=== PATIENT | female | born 1935 | race Caucasian/White ===

== ENCOUNTER 2016-07-24 18:38 | Emergency (ER) | payer BC ==
[~2016-07-24 18:38] MED LIST: ACET-1311 PO; ARC5 PO; ASCO10003 PO; ASPEC81 PO; CHOL1TAB4 PO; CIPR1TAB10 PO; CYAN100048 PO; DFL100 PO; DLCSR120 PO; ESCI1TAB6 PO; HYDR-5688 PO; INSDGIPEN SC; INSUINJ14 SC; METR-163 PO; MULT-513 PO; PANC1CAP17 PO; SODI5SOL4 OPB; TPRSR50 PO; TRAM-10 PO; TRAV0.00 OPB; ZYP25 PO
[2016-07-24] MEDS ORDERED: IBUPROFEN 600 MG TAB PO STA (18:49)
--- NOTE | 2016-07-24 18:56 | EMERGENCY ROOM VISIT NOTE ---
History Report prepared by Gisella: Reva Cobos Under the Supervision of: Dr. Donald Harris M.D. First contact with patient: 18:40 Stated Complaint: ILLNESS, INCREASED AMS, FEVER History of Present Illness The patient is an 80 year old female who presents to the Emergency Room with worsening AMS. She comes by EMS from the [facility]. Nursing staff reports that the patient is always altered, but has been increasingly so today. She has also had a fever for 2 days. The staff has been giving her Tylenol, but the time of her last dose is unknown. The patient also had some vomiting. She complains of lower abdominal pain. The history is limited due to the patient's AMS. 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 (8) Pancreat Cyst/Pseudocyst (9) Percutaneous Translum Coron Angioplasty Status (10) Pneumonia (11) Pure Hypercholesterolem Family History Omitted secondary to age Social History Smoking Status: Unknown if Ever Smoked Alcohol Use: none Drug Use: none Marital Status: Housing Status: assisted living Occupation Status: retired Current/Historical Medications Scheduled Acetaminophen (Tylenol), 500 MG PO QID Cholecalciferol (D 5000), 5,000 UNITS PO QAM Cyanocobalamin (Vitamin B-12), 3,000 MCG PO QAM Diltiazem Hcl Ext Rel (Tiazac), 120 MG PO QAM Donepezil HCl (Donepezil HCl), 5 MG PO HS Escitalopram (Lexapro), 10 MG PO QAM Escitalopram Oxalate (Lexapro), 5 MG PO QAM Insulin Glargine (Lantus Solostar), 12 UNITS SC AMPM Metoprolol Succ (Toprol Xl) (Toprol-Xl), 50 MG PO QAM Multiple Vitamins W/ Minerals (Therems M), 1 TAB PO QAM Multiple Vitamins W/ Minerals (Preservision Areds 2), 1 CAP PO QAM Nutritional Supplements (Glucerna), 60 ML PO QID Olanzapine (Olanzapine), 1 TAB PO HS Olanzapine (Zyprexa), 2.5 MG PO HS Pancrelipase (Lipase-Protease- (Zenpep 58814 Unit), 20,000 UNITS PO TIDM Sulfa/Trimethoprim (Bactrim Ds 800MG/160MG), 1 TAB PO BID Travoprost (Travatan Z), 1 DROPS OPB HS Scheduled PRN Acetaminophen (Tylenol), 650 MG PO Q4 PRN for MILD PAIN/TEMP >100F Allergies Coded Allergies: Honey Bee (Verified Allergy, Severe, HIVES, 07/24/16) Latex (Verified Allergy, Mild, RASH, 07/24/16) Adhesives (Verified Allergy, Unknown, BANDAIDS, 07/24/16) Penicillins (Verified Adverse Reaction, Mild, NAUSEA, 07/24/16) Physical Exam Vital Signs Date Time Temp Pulse Resp B/P (MAP) Pulse Ox O2 Delivery O2 Flow Rate FiO2 07/24/16 20:31 63 07/24/16 19:40 38.5 07/24/16 18:59 93 Room Air 07/24/16 18:54 37.2 74 18 159/97 93 Room Air Physical Exam GENERAL: Patient awake, alert, confused, disoriented. Patient follows commands. Patient does not appear toxic. Patient is adequately hydrated and well-nourished. SKIN: No erythema, pallor, cyanosis or rash. Warm to touch. HEENT: Normal head, pupils equal, reactive to light and accommodation. Oral cavity and posterior pharynx appear normal. Neck: Without adenopathy, no neck vein distention. LUNGS: Clear to auscultation. No wheezes, no rales, no rhonchi. HEART: No murmurs. No gallops. No rubs ABDOMEN: No masses, no rebound, no hepatomegaly or splenomegaly. EXTREMITIES: No signs of trauma. No pedal or pretibial edema. No calf or thigh tenderness. NEUROLOGIC: Cranial nerves II-XII within normal limits. No gross motor sensory function deficits. Medical Decision & Procedures ER Provider Diagnostic Interpretation: X ray results are stated below per my interpretation and the radiologist's interpretation. CHEST ONE VIEW PORTABLE HISTORY: fever COMPARISON: Chest 11/10/2015. FINDINGS: There are low lung volumes. The heart is top normal in size. No pleural effusions. No pneumothorax. No focal lung consolidations to suggest pneumonia. No evidence for pulmonary edema. IMPRESSION: No acute process. Electronically signed by: Wayne Rowan M.D. 07/24/2016 8:17 PM Dictated Date/Time: 07/24/2016 8:16 PM Laboratory Results 07/24/16 19:10 Red Blood Count 4.08, Mean Corpuscular Volume 89.5, Mean Corpuscular Hemoglobin 30.6, Mean Corpuscular Hemoglobin Concent 34.2, Mean Platelet Volume 9.2, Neutrophils (%) (Auto) 84.1, Lymphocytes (%) (Auto) 8.6, Monocytes (%) (Auto) 6.6, Eosinophils (%) (Auto) 0.2, Basophils (%) (Auto) 0.2, Neutrophils # (Auto) 9.02, Lymphocytes # (Auto) 0.92, Monocytes # (Auto) 0.71, Eosinophils # (Auto) 0.02, Basophils # (Auto) 0.02 07/24/16 19:10 Test 07/24/16 19:10 07/24/16 19:23 White Blood Count 10.72 K/uL (4.8-10.8) Red Blood Count 4.08 M/uL (4.2-5.4) Hemoglobin 12.5 g/dL (12.0-16.0) Hematocrit 36.5 % (37-47) Mean Corpuscular Volume 89.5 fL (80-100) Mean Corpuscular Hemoglobin 30.6 pg (25-34) Mean Corpuscular Hemoglobin Concent 34.2 g/dl (32-36) Platelet Count 227 K/uL (130-400) Mean Platelet Volume 9.2 fL (7.4-10.4) Neutrophils (%) (Auto) 84.1 % Lymphocytes (%) (Auto) 8.6 % Monocytes (%) (Auto) 6.6 % Eosinophils (%) (Auto) 0.2 % Basophils (%) (Auto) 0.2 % Neutrophils # (Auto) 9.02 K/uL (1.4-6.5) Lymphocytes # (Auto) 0.92 K/uL (1.2-3.4) Monocytes # (Auto) 0.71 K/uL (0.11-0.59) Eosinophils # (Auto) 0.02 K/uL (0-0.5) Basophils # (Auto) 0.02 K/uL (0-0.2) RDW Standard Deviation 46.0 fL (36.4-46.3) RDW Coefficient of Variation 13.9 % (11.5-14.5) Immature Granulocyte % (Auto) 0.3 % Immature Granulocyte # (Auto) 0.03 K/uL (0.00-0.02) Anion Gap 8.0 mmol/L (3-11) Estimated GFR () 37.2 Estimated GFR (Non- 32.1 BUN/Creatinine Ratio 15.8 (10-20) Lactic Acid Level 1.9 mmol/L (0.4-2.0) Calcium Level 8.7 mg/dl (8.5-10.1) Total Bilirubin 0.4 mg/dl (0.2-1) Aspartate Amino Transf (AST/SGOT) 17 U/L (15-37) Alanine Aminotransferase (ALT/SGPT) 23 U/L (12-78) Alkaline Phosphatase 72 U/L (45-117) Troponin I < 0.015 ng/ml (0-0.045) Total Protein 6.9 gm/dl (6.4-8.2) Albumin 3.1 gm/dl (3.4-5.0) Globulin 3.8 gm/dl (2.5-4.0) Albumin/Globulin Ratio 0.8 (0.9-2) Urine Color YELLOW Urine Appearance CLOUDY (CLEAR) Urine pH 7.0 (4.5-7.5) Urine Specific [place] 1.020 (1.000-1.030) Urine Protein 2+ (NEG) Urine Glucose (UA) 2+ (NEG) Urine Ketones NEG (NEG) Urine Occult Blood 3+ (NEG) Urine Nitrite NEG (NEG) Urine Bilirubin NEG (NEG) Urine Urobilinogen NEG (NEG) Urine Leukocyte Esterase LARGE (NEG) Urine WBC (Auto) >30 /hpf (0-5) Urine RBC (Auto) >30 /hpf (0-4) Urine Hyaline Casts (Auto) 1-5 /lpf (0-5) Urine Epithelial Cells (Auto) 0-5 /lpf (0-5) Urine Bacteria (Auto) NEG (NEG) Urine Yeast (Auto) PRESENT (NONE PRSENT) Laboratory results as stated above per my review. ECG Indication: altered mental status Rate (beats per minute): 62 Rhythm: normal sinus (with sinus arrythmia) Findings: no acute ischemic change, other (normal axis) ED Course 1843: Past medical records reviewed. The patient was evaluated in room B7. A complete history and physical examination was performed. 1848: Ibuprofen 600 mg PO. Medical Decision Nurses notes reviewed. Medical history sheet reviewed. Differential diagnosis includes but is not limited to: UTI, pneumonia, sepsis, CVA, TIA. Medication Reconciliation: I attest that I have personally reviewed the patient' s current medication list. Blood Pressure Screening: Patient was found to have an elevated blood pressure and was referred to their primary doctor for recheck and further treatment. The patient has a history of altered mentation but apparently has been worse over the past day. The patient also was found to have a low-grade fever. Chest x-ray does not reveal an infiltrate. Her white count is not elevated nor is her lactic acid. The patient does have an infected urine. I do not think patient is septic. She was started on Bactrim today. She will continue that medication at the assisted living facility. Impression Primary Impression: Urinary tract infection Scribe Attestation The scribe's documentation has been prepared under my direction and personally reviewed by me in its entirety. I confirm that the note above accurately reflects all work, treatment, procedures, and medical decision making performed by me. Departure Information Dispostion Home / Self-Care Prescriptions Sulfa/Trimethoprim (Bactrim Ds 800MG/160MG) Tab 1 TAB PO BID, #19 TAB Prov: Donald Harris M.D. 07/24/16 Referrals Morales Ferguson M.D. (PCP) Additional Instructions One Bactrim twice a day for 10 days. Continue all of your current medications as prescribed. Urinalysis should be repeated within 10-14 days.
[2016-07-24 18:59] VITALS: O2SAT 93
[2016-07-24 19:34] LABS: BASO % 0.2 %; BASO ABS # 0.02 K/uL (0-0.2); COMPLETE YES; EOS % 0.2 %; HEMATOCRIT 36.5 % (37-47); IG% 0.3 %; LYMPH % 8.6 %; LYMPH ABS # 0.92 K/uL (1.2-3.4); MEAN CELL VOLUME 89.5 fL (80-100); MEAN CORPUSCULAR HEMOGLOBIN 30.6 pg (25-34); MEAN CORPUSCULAR HGB CONC 34.2 g/dl (32-36); MEAN PLATELET VOLUME 9.2 fL (7.4-10.4); MONO % 6.6 %; NEUT % 84.1 %; PLATELET COUNT 227 K/uL (130-400); RED BLOOD COUNT 4.08 M/uL (4.2-5.4); WHITE BLOOD COUNT 10.72 K/uL (4.8-10.8)
[2016-07-24] MEDS ORDERED: ACET-1256 PO (19:34)
[2016-07-24] MEDS ORDERED: INSDGIPEN SC (19:34)
[2016-07-24] MEDS ORDERED: OLAN1TAB7 PO (19:34)
[2016-07-24] MEDS ORDERED: MULT60CA PO (19:34)
[2016-07-24] MEDS ORDERED: CHOLCAP10 PO (19:34)
[2016-07-24] MEDS ORDERED: MULTTAB63 PO (19:34)
[2016-07-24] MEDS ORDERED: DILT120C68 PO (19:34)
[2016-07-24] MEDS ORDERED: NUTR-468 PO (19:34)
[2016-07-24] MEDS ORDERED: METO50TA7 PO (19:34)
[2016-07-24] MEDS ORDERED: ESCI10TA17 PO (19:34)
[2016-07-24 19:40] VITALS: TEMP 38.5
[2016-07-24 19:47] LABS: ALT/SGPT 23 U/L (12-78); AST/SGOT 17 U/L (15-37); BLOOD UREA NITROGEN 24 mg/dl (7-18); BUN/CREATININE RATIO 15.8 (10-20); CALCIUM 8.7 mg/dl (8.5-10.1); CARBON DIOXIDE 28 mmol/L (21-32); CHLORIDE 96 mmol/L (98-107); GLUCOSE 231 mg/dl (70-99); POTASSIUM 4.5 mmol/L (3.5-5.1); SODIUM 132 mmol/L (136-145)
[2016-07-24 19:52] LABS: ALB/GLOB RATIO 0.8 (0.9-2); ALKALINE PHOSPHATASE 72 U/L (45-117)
[2016-07-24 19:59] LABS: URINE APPEARANCE CLOUDY (CLEAR); URINE BILIRUBIN NEG (NEG); URINE COLOR YELLOW; URINE EPITHELIAL CELL AUTO 0-5 /lpf (0-5); URINE NITRITE NEG (NEG); UROBILINOGEN NEG (NEG); ZZURINE CULT IF INDIC CATH YES
[2016-07-24 20:15] LABS: MANUAL MICROSCOPIC REQUIRED? NO; REVIEW REQ? YES
--- NOTE | 2016-07-24 20:18 | DIAGNOSTIC IMAGING REPORT ---
CHEST ONE VIEW PORTABLE HISTORY: fever COMPARISON: Chest 11/10/2015. FINDINGS: There are low lung volumes. The heart is top normal in size. No pleural effusions. No pneumothorax. No focal lung consolidations to suggest pneumonia. No evidence for pulmonary edema. IMPRESSION: No acute process. Electronically signed by: Wayne Rowan M.D. 07/24/2016 8:17 PM Dictated Date/Time: 07/24/2016 8:16 PM
[2016-07-24] MEDS ORDERED: SULFAMETHOXAZOLE/TRIMETHOPRIM DS 800/160MG TAB PO STA (20:45)
[2016-07-24] MEDS ORDERED: SULF800T23 PO (20:49)
[2016-07-24 21:39] VITALS: BP 175/70; PULSE 67; O2SAT 94
[2016-07-27] MEDS ORDERED: ASPEC81 PO (11:48)
[2016-07-27] MEDS ORDERED: CPR500 PO (11:48)
[2016-09-01] MEDS ORDERED: ASPI-232 PO (11:55)
[2016-09-01] MEDS ORDERED: OXYC-57 PO (13:39)
[2016-09-01] MEDS ORDERED: PHEN-939 PO (13:39)
[2016-09-01] MEDS ORDERED: CIPR-255 PO (13:39)
== END 2016-07-24 21:40 | disposition home or self-care (01) ==
LOC: EDBD 18:38 → C.EDB 18:39
DX: N39.0 Urinary tract infection, site not specified (principal); R50.9 Fever, unspecified; R41.82 Altered mental status, unspecified; E11.9 Type 2 diabetes mellitus without complications; Z79.899 Other long term (current) drug therapy; Z79.4 Long term (current) use of insulin

== ENCOUNTER 2016-07-24 22:57 | Inpatient (IN) | payer BC, OTHER ==
[~2016-07-24] VITALS: Ht 157.5 cm; Wt 53.4 kg
[~2016-07-24 22:57] MED LIST changes: +ACET-1256 PO; +CHOLCAP10 PO; +DILT120C68 PO; +ESCI10TA17 PO; +METO50TA7 PO; +MULT60CA PO; +MULTTAB63 PO; +NUTR-468 PO; +OLAN1TAB7 PO; +SULF800T23 PO
[2016-07-24] MEDS ORDERED: ACETAMINOPHEN 650 MG SUPP PR ONE (23:00)
[2016-07-24] MEDS ORDERED: SODIUM CHLORIDE 0.9% 1000ML 1,000 ML IV STA ×2 (23:02)
[2016-07-24] MEDS ORDERED: AZTREONAM IV 2,000 MG in DEXTROSE 5% 100ML 100 ML IV STA (23:05)
[2016-07-24] MEDS ORDERED: DAPTOmycin IV 500 MG in SODIUM CHLORIDE 0.9% 50ML 50 ML IV STA (23:05)
[2016-07-24 23:28] LABS: BASO % 0.2 %; BASO ABS # 0.03 K/uL (0-0.2); COMPLETE YES; HEMATOCRIT 39.4 % (37-47); IG% 0.2 %; LYMPH % 7.3 %; LYMPH ABS # 0.89 K/uL (1.2-3.4); MEAN CELL VOLUME 88.7 fL (80-100); MEAN CORPUSCULAR HEMOGLOBIN 29.5 pg (25-34); MEAN CORPUSCULAR HGB CONC 33.2 g/dl (32-36); MEAN PLATELET VOLUME 9.2 fL (7.4-10.4); MONO % 11.2 %; NEUT % 81.1 %; PLATELET COUNT 225 K/uL (130-400); RED BLOOD COUNT 4.44 M/uL (4.2-5.4); WHITE BLOOD COUNT 12.17 K/uL (4.8-10.8)
--- NOTE | 2016-07-25 00:07 | EMERGENCY ROOM VISIT NOTE ---
History Report prepared by Gisella: Anali Herrera Under the Supervision of: Dr. Naga Mcknight M.D. First contact with patient: 23:00 Stated Complaint: FEVER History of Present Illness The patient is a 80 year old female who presents to the Emergency Room with complaints of a constant fever beginning today. Per nursing staff the patient is always has an altered mental status. She was seen here earlier today for lower abdominal pain and has UTI currently. She was discharged home after her visit and [facility] because of her fever. Per nursing staff the penitentiary noted that she has been more confused than usual over the last 2 days. The patient complains of abdominal pain. HPI limited secondary to altered mental status. Source of History: patient, nursing staff History Limited By: AMS Onset: tonight Position: other (global) Symptom Intensity: 102 Quality: other (fever) Timing: constant Review of Systems See HPI for pertinent positives and negatives. ROS limited secondary to AMS. 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 (8) Pancreat Cyst/Pseudocyst (9) Percutaneous Translum Coron Angioplasty Status (10) Pneumonia (11) Pure Hypercholesterolem Family History Omitted secondary to age Social History Smoking Status: Unknown if Ever Smoked Alcohol Use: none Drug Use: none Marital Status: Housing Status: assisted living Occupation Status: retired Current/Historical Medications Scheduled Acetaminophen (Tylenol), 500 MG PO QID Cholecalciferol (D 5000), 5,000 UNITS PO QAM Cyanocobalamin (Vitamin B-12), 3,000 MCG PO QAM Diltiazem Hcl Ext Rel (Tiazac), 120 MG PO QAM Donepezil HCl (Donepezil HCl), 5 MG PO HS Escitalopram (Lexapro), 10 MG PO QAM Escitalopram Oxalate (Lexapro), 5 MG PO QAM Insulin Glargine (Lantus Solostar), 12 UNITS SC AMPM Metoprolol Succ (Toprol Xl) (Toprol-Xl), 50 MG PO QAM Multiple Vitamins W/ Minerals (Therems M), 1 TAB PO QAM Multiple Vitamins W/ Minerals (Preservision Areds 2), 1 CAP PO QAM Nutritional Supplements (Glucerna), 60 ML PO QID Olanzapine (Olanzapine), 1 TAB PO HS Olanzapine (Zyprexa), 2.5 MG PO HS Pancrelipase (Lipase-Protease- (Zenpep 38139 Unit), 20,000 UNITS PO TIDM Sulfa/Trimethoprim (Bactrim Ds 800MG/160MG), 1 TAB PO BID Travoprost (Travatan Z), 1 DROPS OPB HS Scheduled PRN Acetaminophen (Tylenol), 650 MG PO Q4 PRN for MILD PAIN/TEMP >100F Allergies Coded Allergies: Honey Bee (Verified Allergy, Severe, HIVES, 07/24/16) Latex (Verified Allergy, Mild, RASH, 07/24/16) Adhesives (Verified Allergy, Unknown, BANDAIDS, 07/24/16) Penicillins (Verified Adverse Reaction, Mild, NAUSEA, 07/24/16) Physical Exam Vital Signs Date Time Temp Pulse Resp B/P (MAP) Pulse Ox O2 Delivery O2 Flow Rate FiO2 07/25/16 00:15 38.7 72 18 150/78 93 Room Air 07/24/16 23:17 73 07/24/16 23:13 92 Room Air 07/24/16 23:03 39.2 79 18 180/101 93 Room Air Physical Exam GENERAL: Awake, tired appearing, altered sensorium HENT: Normocephalic, atraumatic. Oropharynx unremarkable. EYES: Normal conjunctiva. Sclera non-icteric. NECK: Supple. No nuchal rigidity. FROM. No JVD. RESPIRATORY: Clear to auscultation. CARDIAC: Regular rate, normal rhythm. Extremities warm and well perfused. Pulses equal. ABDOMEN: Soft, non-distended. Mild left sided abdominal tenderness. No rebound or guarding. No masses. RECTAL: Deferred. MUSCULOSKELETAL: Chest examination reveals no tenderness. LOWER EXTREMITIES: Calves are equal size bilaterally and non-tender. No edema. No discoloration. NEURO: Normal sensorium. No sensory or motor deficits noted. SKIN: No rash or jaundice noted. Medical Decision & Procedures ER Provider Diagnostic Interpretation: CT scan of the abdomen and pelvis is pending radiology read. There is concerns for a left sided kidney stone and hydronephrosis with perinephric stranding on my interpretation. Laboratory Results 07/24/16 23:18 Red Blood Count 4.44, Mean Corpuscular Volume 88.7, Mean Corpuscular Hemoglobin 29.5, Mean Corpuscular Hemoglobin Concent 33.2, Mean Platelet Volume 9.2, Neutrophils (%) (Auto) 81.1, Lymphocytes (%) (Auto) 7.3, Monocytes (%) (Auto) 11.2, Eosinophils (%) (Auto) 0.0, Basophils (%) (Auto) 0.2, Neutrophils # (Auto ) 9.86, Lymphocytes # (Auto) 0.89, Monocytes # (Auto) 1.36, Eosinophils # (Auto ) 0.00, Basophils # (Auto) 0.03 Test 07/24/16 23:18 White Blood Count 12.17 K/uL (4.8-10.8) Red Blood Count 4.44 M/uL (4.2-5.4) Hemoglobin 13.1 g/dL (12.0-16.0) Hematocrit 39.4 % (37-47) Mean Corpuscular Volume 88.7 fL (80-100) Mean Corpuscular Hemoglobin 29.5 pg (25-34) Mean Corpuscular Hemoglobin Concent 33.2 g/dl (32-36) Platelet Count 225 K/uL (130-400) Mean Platelet Volume 9.2 fL (7.4-10.4) Neutrophils (%) (Auto) 81.1 % Lymphocytes (%) (Auto) 7.3 % Monocytes (%) (Auto) 11.2 % Eosinophils (%) (Auto) 0.0 % Basophils (%) (Auto) 0.2 % Neutrophils # (Auto) 9.86 K/uL (1.4-6.5) Lymphocytes # (Auto) 0.89 K/uL (1.2-3.4) Monocytes # (Auto) 1.36 K/uL (0.11-0.59) Eosinophils # (Auto) 0.00 K/uL (0-0.5) Basophils # (Auto) 0.03 K/uL (0-0.2) RDW Standard Deviation 45.5 fL (36.4-46.3) RDW Coefficient of Variation 13.8 % (11.5-14.5) Immature Granulocyte % (Auto) 0.2 % Immature Granulocyte # (Auto) 0.03 K/uL (0.00-0.02) Bedside Lactic Acid Venous 1.61 mmol/L (0.90-1.70) Laboratory results reviewed by me Medications Administered Medications (Trade) Dose Ordered Sig/Rae Route Start Time Stop Time Status Last Admin Dose Admin Acetaminophen (Tylenol Supp) 650 mg STK-MED ONCE [place] 07/24/16 23:00 07/24/16 23:01 DC 07/24/16 23:00 650 MG Sodium Chloride 1,000 ml @ 125 mls/hr Q8H STAT IV 07/24/16 23:02 07/25/16 07:01 07/24/16 23:30 125 MLS/HR Sodium Chloride 1,000 ml @ 999 mls/hr Q1H1M STAT IV 07/24/16 23:02 07/25/16 00:02 DC 07/24/16 23:02 999 MLS/HR Daptomycin 500 mg/ Sodium Chloride 60 ml @ 100 mls/hr NOW STAT IV 07/24/16 23:05 07/24/16 23:40 DC 07/24/16 23:30 100 MLS/HR Aztreonam 2000 mg/ Dextrose 110 ml @ 100 mls/hr NOW STAT IV 07/24/16 23:05 07/25/16 00:10 DC 07/25/16 00:00 100 MLS/HR ED Course 2300: The patient was evaluated in room B7. A complete history and physical exam was performed. 2300: Tylenol Susp 650mg [place]. 2302: Sodium Chloride 1000 ml @ 999 mls/hr IV, Sodium Chloride 1000 ml @ 125 mls /hr IV. 2305: Aztreonam 2000mg/Dextrose 110ml @ 100mls/hr IV, Daptomycin 500mg/Sodium Chloride 60ml @ 100mls/hr IV. 0005: consultation with internal medicine placed. 0010: Discussed the case with Dr. Fiona King of the hospitalist service. The patient will be evaluated for further treatment. 0025: Discussed my interpretation of the CT with Dr. Elkin Leo. Official read still pending. Internal medicine will be provided with the CT results when they are faxed to the principal secretary. Medical Decision Prior records/ancillary studies reviewed and summarized above. Nursing notes reviewed and agree them. Additional history obtained from nursing. The patient's history was concerning for altered mental status. Differential diagnosis: Etiologies such as sepsis, infection, hypoglycemia, electrolyte abnormalities, cardiac sources, intracerebral event, toxicologic, neurologic, as well as others were entertained. Physical examination: As above. ER treatment provided: IV Lock Tylenol suppository Normal saline hydration 1 L then 125 an hour IV aztreonam IV daptomycin Additional normal saline 500 mL bolus to complete a 30 mL/kg. Diagnostics interpretation by me: The labs revealed an increased leukocytosis of 12,000. Serum lactate was minimally elevated but slightly less than prior. Chemistries were not repeated. Please see other visit. Imaging studies: CT scan as above. Possible left pyelonephritis and proximal ureteral stone. Consultation: A consultation was placed with the hospitalist. The case was discussed and diagnostics were reviewed. The patient was evaluated in the ER for further treatment. The chart was completed utilizing [employer] Speech voice recognition software. Grammatical errors, random word insertions, pronoun errors, and incomplete sentences are an occasional consequence of this system due to software limitations, ambient noise, and hardware issues. Any formal questions or concerns about the content, text, or information contained within the body of this dictation should be directly addressed to the physician for clarification. Impression Primary Impression: Sepsis Additional Impressions: UTI (urinary tract infection) Left sided abdominal pain Confusion Scribe Attestation The scribe's documentation has been prepared under my direction and personally reviewed by me in its entirety. I confirm that the note above accurately reflects all work, treatment, procedures, and medical decision making performed by me. Departure Information Dispostion Being Evaluated By Hospitalist Referrals Morales Ferguson M.D. (PCP) Problem Qualifiers
[2016-07-25] MEDS ORDERED: SODIUM CHLORIDE 0.9% 500ML 500 ML IV STA (00:43)
[2016-07-25] MEDS ORDERED: POLYETHYLENE (MIRALAX) 17 GM PACK PO PRN (02:15)
[2016-07-25] MEDS ORDERED: ACETAMINOPHEN 325 MG TAB PO PRN (02:15)
[2016-07-25] MEDS ORDERED: ALUMINUM/MAGNESIUM/SIMETH (MAALOX MAX) 30 ML UDC PO PRN (02:15)
[2016-07-25] MEDS ORDERED: MAGNESIUM HYDROXIDE SUSP 30 ML UDC PO PRN (02:15)
--- NOTE | 2016-07-25 02:27 | History and Physical ---
History & Physical Date & Time of Service: Jul 25, 2016 at 02:27 Chief Complaint: FEVER Primary Care Physician: Morales Ferguson M.D. History of Present Illness Source: patient 80-year-old female with a past medical history of chronic pancreatitis, diabetes mellitus, dyslipidemia, depression [place] presented to the ER with complaints of altered sensorium and continuing fever. The patient was seen in the ER earlier today for lower abdominal pain and was diagnosed with UTI. She was discharged home with antibiotics. She was sent back to the ER and she was found to be more confused and continued to spike fevers. 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 (8) Pancreat Cyst/Pseudocyst Status: Chronic (9) Percutaneous Translum Coron Angioplasty Status Status: Chronic (10) Pure Hypercholesterolem Status: Chronic Family History Omitted secondary to age Social History Smoking Status: Unknown if Ever Smoked Drug Use: none Marital Status: Housing status: penitentiary Occupational Status: retired Immunizations History of Influenza Vaccine: No History of Tetanus Vaccine?: Yes History of Pneumococcal: Unknown History of Hepatitis B Vaccine: Unknown Multi-Drug Resistant Organisms History of MDRO: No Allergies Coded Allergies: Honey Bee (Verified Allergy, Severe, HIVES, 07/24/16) Latex (Verified Allergy, Mild, RASH, 07/24/16) Adhesives (Verified Allergy, Unknown, BANDAIDS, 07/24/16) Penicillins (Verified Adverse Reaction, Mild, NAUSEA, 07/24/16) Home Medications Scheduled Acetaminophen (Tylenol), 500 MG PO QID Aspirin (Aspirin EC Low Dose), 81 MG PO QAM Cholecalciferol (D 5000), 5,000 UNITS PO QAM Ciprofloxacin (Ciprofloxacin HCl), 500 MG PO BID Cyanocobalamin (Vitamin B-12), 3,000 MCG PO QAM Diltiazem Hcl Ext Rel (Tiazac), 120 MG PO QAM Donepezil HCl (Donepezil HCl), 5 MG PO HS Escitalopram (Lexapro), 10 MG PO QAM Escitalopram Oxalate (Lexapro), 5 MG PO QAM Insulin Glargine (Lantus Solostar), 12 UNITS SC AMPM Metoprolol Succ (Toprol Xl) (Toprol-Xl), 50 MG PO QAM Multiple Vitamins W/ Minerals (Therems M), 1 TAB PO QAM Multiple Vitamins W/ Minerals (Preservision Areds 2), 1 CAP PO QAM Nutritional Supplements (Glucerna), 60 ML PO QID Olanzapine (Zyprexa), 2.5 MG PO HS Pancrelipase (Lipase-Protease- (Zenpep [id number] Unit), 20,000 UNITS PO TIDM Travoprost (Travatan Z), 1 DROPS OPB HS Scheduled PRN Acetaminophen (Tylenol), 650 MG PO Q4 PRN for MILD PAIN/TEMP >100F Review of Systems Unable to obtain full ROS as patient appears to be confused. She however complains of pain Physical Exam Vital Signs Date Time Temp Pulse Resp B/P (MAP) Pulse Ox O2 Delivery O2 Flow Rate FiO2 07/25/16 02:04 38.7 07/25/16 01:58 70 18 148/69 93 Room Air 07/25/16 00:15 38.7 72 18 150/78 93 Room Air 07/24/16 23:17 73 07/24/16 23:13 92 Room Air 07/24/16 23:03 39.2 79 18 180/101 93 Room Air General Appearance: WD/WN, + mild distress Eyes: normal inspection ENT: hearing grossly normal Neck: supple Respiratory/Chest: chest non-tender, lungs clear, normal breath sounds Cardiovascular: regular rate, rhythm, no edema Abdomen/GI: normal bowel sounds, soft, + tenderness Back: + left CVA tenderness Neurologic/Psych: alert, normal mood/affect, oriented x 3 Skin: normal color Diagnostics Laboratory Results Results Past 24 Hours Test 07/24/16 23:18 07/25/16 02:24 Range/Units White Blood Count 12.17 4.8-10.8 K/uL Red Blood Count 4.44 4.2-5.4 M/uL Hemoglobin 13.1 12.0-16.0 g/dL Hematocrit 39.4 37-47 % Mean Corpuscular Volume 88.7 80-100 fL Mean Corpuscular Hemoglobin 29.5 25-34 pg Mean Corpuscular Hemoglobin Concent 33.2 32-36 g/dl Platelet Count 225 130-400 K/uL Mean Platelet Volume 9.2 7.4-10.4 fL Neutrophils (%) (Auto) 81.1 % Lymphocytes (%) (Auto) 7.3 % Monocytes (%) (Auto) 11.2 % Eosinophils (%) (Auto) 0.0 % Basophils (%) (Auto) 0.2 % Neutrophils # (Auto) 9.86 1.4-6.5 K/uL Lymphocytes # (Auto) 0.89 1.2-3.4 K/uL Monocytes # (Auto) 1.36 0.11-0.59 K/uL Eosinophils # (Auto) 0.00 0-0.5 K/uL Basophils # (Auto) 0.03 0-0.2 K/uL RDW Standard Deviation 45.5 36.4-46.3 fL RDW Coefficient of Variation 13.8 11.5-14.5 % Immature Granulocyte % (Auto) 0.2 % Immature Granulocyte # (Auto) 0.03 0.00-0.02 K/uL Bedside Lactic Acid Venous 1.61 0.90-1.70 mmol/L Impression Assessment and Plan 80-year-old female with a past medical history of chronic pancreatitis, diabetes mellitus, dyslipidemia, depression resident of the [facility] presented to the ER with complaints of altered sensorium and continuing fever. Was found to have a urinary tract infection and CT abdomen and pelvis revealed a left-sided UPJ obstruction with 11 mm calculus with perinephric stranding Sepsis secondary to Complicated urinary tract infection: - Continue IV fluids - UA positive for large leuk esterase - Blood cultures and urine cultures pending - Continue Zosyn - Pain control with morphine - CT abdomen and pelvis: - Urology consult due to 11 mm stone in left UPJ BEBA Cr at 1.5, baseline 0.6 sec to obstruction - monitor Cr - Urology consult as above CAD s/p bare metal stent, Chronic diastolic CHF, HTN -continue Toprol, diltiazem Diabetes mellitus: - Continue Lantus and insulin sliding scale Depression: - Continue Lexapro Behavioral issues: -Continue olanzapine Chronic Pancreatitis: - Continue pancrease DVT prophylaxis: SCDs Disposition: Admitted to [facility] Level of Care Med/Surg VTE Prophylaxis VTE Risk Assessment Done? Y/N: Yes Risk Level: Moderate Given or contraindicated: SCD's Resident Tracking Resident Involvement: Resident Care Provided Care Provided: [facility] Assessment and Plan Attending Addendum: I have physically seen and examined this patient, have directed their medical care, have supervised the medical residents activities, and agree with the H&P as noted above, with the following changes: NONE
[2016-07-25] MEDS ORDERED: MoRPHine SULFATE 2 MG/ML CARP IV PRN (02:30)
[2016-07-25] MEDS ORDERED: PHARMACY GLYCEMIC MGMT CONSULT PRN (02:37)
[2016-07-25] MEDS: ACETAMINOPHEN 650 MG SUPP PR PRN ×3 (03:05→14:03)
[2016-07-25] MEDS ORDERED: PATIENT'S HEIGHT AND/OR WEIGHT NEEDED SCH (03:15)
[2016-07-25 03:39] VITALS: BP 148/69; PULSE 87; TEMP 37.5; O2SAT 93; BMI 21.5
[2016-07-25] MEDS: SODIUM CHLORIDE 0.9% 1000ML 1,000 ML IV SCH ×3 (04:18→23:37)
[2016-07-25] MEDS ORDERED: INSULIN ASPART 100 UNITS/ML 3 ML PEN SC SCH (06:30)
[2016-07-25 07:45] VITALS: BP 199/87; PULSE 71; TEMP 38.1; O2SAT 94
[2016-07-25 07:48] LABS: BASO % 0.2 %; BASO ABS # 0.02 K/uL (0-0.2); COMPLETE YES; HEMATOCRIT 38.9 % (37-47); IG% 0.3 %; LYMPH % 6.5 %; MEAN CELL VOLUME 89.2 fL (80-100); MEAN CORPUSCULAR HEMOGLOBIN 30.3 pg (25-34); MEAN CORPUSCULAR HGB CONC 33.9 g/dl (32-36); MONO % 10.6 %; NEUT % 82.4 %; PLATELET COUNT 211 K/uL (130-400); RED BLOOD COUNT 4.36 M/uL (4.2-5.4); WHITE BLOOD COUNT 12.26 K/uL (4.8-10.8)
--- NOTE | 2016-07-25 07:50 | DIAGNOSTIC IMAGING REPORT ---
CT OF THE ABDOMEN AND PELVIS WITHOUT CONTRAST, STONE PROTOCOL CLINICAL HISTORY: Left flank pain and fever. COMPARISON STUDY: CT of the abdomen November 10, 2015 and December 31, 2015. TECHNIQUE: Helical axial images of the abdomen and pelvis were obtained without IV or oral contrast according to renal stone protocol. FINDINGS: Pneumobilia is again noted that is post Whipple. Biliary and pancreatic ductal dilatation is unchanged with pancreatic glandular atrophy. Evaluation of the abdomen is suboptimal on this unenhanced exam. Note is made of a 12 mm calculus at the left ureteropelvic junction. There is moderate left hydronephrosis with moderate left perinephric infiltration. There is also a 9 mm calculus within the left renal pelvis in addition to a 8 mm distal left ureteral calculus. Images the pelvis are degraded by streak artifact from right hip arthroplasty. There is no evidence for a bowel obstruction. No lymphadenopathy is present. A mild T12 compression fracture is new since prior exam. Unenhanced images of the spleen, adrenal glands. There is a cyst within the upper pole of the left kidney. IMPRESSION: 1. 12 mm left ureteropelvic junction calculus with moderate left hydronephrosis and perinephric infiltration. 8 mm distal left ureteral calculus with mild upstream dilatation as well as a 9 mm left renal pelvis calculus. 2. Stable postoperative findings status post Whipple. 3. Mild T12 compression fracture which is new since CT of December 31, 2015. Electronically signed by: Ky Aleman M.D. 07/25/2016 7:49 AM Dictated Date/Time: 07/25/2016 6:47 AM
[2016-07-25] MEDS ORDERED: PIPERACILL/TAZOBAC IV 3.375 GM in DEXTROSE 5% 100ML IV ONE (08:00)
[2016-07-25] MEDS ORDERED: AZTREONAM IV 2,000 MG in DEXTROSE 5% 100ML 100 ML IV SCH (08:00)
[2016-07-25] MEDS ORDERED: PIPERACILL/TAZOBAC CONSULT ACTIVE PRN (08:15)
[2016-07-25] MEDS ORDERED: HydrALAZINE HCL 20 MG/ML VIAL IV. PRN (08:15)
[2016-07-25 08:17] LABS: BUN/CREATININE RATIO 14.1 (10-20); CREATININE 1.6 mg/dl (0.60-1.20); POTASSIUM 4.6 mmol/L (3.5-5.1)
[2016-07-25] MEDS: INSULIN ASPART 100 UNITS/ML 3 ML PEN SC SCH ×4 (08:20→21:00)
[2016-07-25 08:24] LABS: CALCIUM 8.8 mg/dl (8.5-10.1)
--- NOTE | 2016-07-25 08:25 | Urology Consultation ---
History General Date of Service: Jul 25, 2016. Chief Complaint: altered mental status Primary Care Physician: Morales Ferguson M.D. Pt seen a urologist before?: Yes (Dr. Vlad Cruz) If yes, why?: hematuria, renal cyst History of Present Illness 80 yo female resident of the [place] transferred to [facility] for altered mental status. Noted to have fever on admission and throughout the night as high as 38.7C. CT scan showing a large left ureteral stone with hydro. BP of 199/87 this morning. The pt has baseline dementia and cannot provide any history for me. Imaging Imaging: CT Laboratory Last 24 Hours Test 07/24/16 23:18 07/25/16 02:50 07/25/16 07:34 07/25/16 07:37 White Blood Count 12.17 K/uL 12.26 K/uL Red Blood Count 4.44 M/uL 4.36 M/uL Hemoglobin 13.1 g/dL 13.2 g/dL Hematocrit 39.4 % 38.9 % Mean Corpuscular Volume 88.7 fL 89.2 fL Mean Corpuscular Hemoglobin 29.5 pg 30.3 pg Mean Corpuscular Hemoglobin Concent 33.2 g/dl 33.9 g/dl Platelet Count 225 K/uL 211 K/uL Mean Platelet Volume 9.2 fL 9.0 fL Neutrophils (%) (Auto) 81.1 % 82.4 % Lymphocytes (%) (Auto) 7.3 % 6.5 % Monocytes (%) (Auto) 11.2 % 10.6 % Eosinophils (%) (Auto) 0.0 % 0.0 % Basophils (%) (Auto) 0.2 % 0.2 % Neutrophils # (Auto) 9.86 K/uL 10.10 K/uL Lymphocytes # (Auto) 0.89 K/uL 0.80 K/uL Monocytes # (Auto) 1.36 K/uL 1.30 K/uL Eosinophils # (Auto) 0.00 K/uL 0.00 K/uL Basophils # (Auto) 0.03 K/uL 0.02 K/uL RDW Standard Deviation 45.5 fL 45.1 fL RDW Coefficient of Variation 13.8 % 13.7 % Immature Granulocyte % (Auto) 0.2 % 0.3 % Immature Granulocyte # (Auto) 0.03 K/uL 0.04 K/uL Bedside Lactic Acid Venous 1.61 mmol/L Lactic Acid Level 1.3 mmol/L Bedside Glucose 219 mg/dl Problem List Medical Problems: (1) Acute paranoia Status: Acute (2) Aspiration pneumonia Status: Acute (3) Confusion Status: Acute (4) Dementia Status: Acute (5) Fall Status: Acute (6) Fever Status: Acute (7) Fracture of right hip Status: Acute (8) Left sided abdominal pain Status: Acute (9) Leucocytosis Status: Acute (10) Paranoid states (delusional disorders) Status: Acute (11) Sepsis Status: Acute (12) Sepsis Status: Acute (13) Urinary tract infection Status: Acute (14) UTI (urinary tract infection) Status: Acute Past History cancer - breast, diabetes, high cholesterol, myocardial infarction, pancreatitis , other (carpal tunnel syndrome) Past Surgical History: adenoidectomy, cardiac catheterization, mastectomy, tonsillectomy, other Family History Omitted secondary to age Social History Hx Tobacco Use In Past Year?: No Smoking: non-smoker Alcohol: never Marital status: Housing status: group home Occupation status: retired Immunizations History of Influenza Vaccine: No History of Tetanus Vaccine?: Yes History of Pneumococcal: Unknown History of Hepatitis B Vaccine: Unknown History of MDRO No Allergies Coded Allergies: Honey Bee (Verified Allergy, Severe, HIVES, 07/24/16) Latex (Verified Allergy, Mild, RASH, 07/24/16) Adhesives (Verified Allergy, Unknown, BANDAIDS, 07/24/16) Penicillins (Verified Adverse Reaction, Mild, NAUSEA, 07/24/16) Medications Home Medications: Home Meds and Scripts Medications Dose Route/Sig Max Daily Dose Days Date Category Dose Instructions Bactrim Ds 800MG/160MG (Trimethoprim/Sulfamethoxazole) Tab 1 Tab PO BID 07/24/16 Rx Tiazac (Diltiazem HCl) 120 Mg Capcr 120 Mg PO QAM 07/24/16 Reported Toprol-Xl (Metoprolol Succinate) 50 Mg Tabcr 50 Mg PO QAM 07/24/16 Reported Lantus Solostar (Insulin Glargine) 100 Unit/Ml Inj 12 Units SC AMPM 07/24/16 Reported Lexapro (Escitalopram Oxalate) 10 Mg Tab 10 Mg PO QAM 07/24/16 Reported TAKE WITH 5 MG FOR TOTAL OF 15 MG. Glucerna (Nutritional Supplements) 1 Liq Liq 60 Ml PO QID 07/24/16 Reported Tylenol (Acetaminophen) 500 Mg Tab 500 Mg PO QID 07/24/16 Reported Preservision Areds 2 (Multiple Vitamins W/ Minerals) 1 Cap Cap 1 Cap PO QAM 07/24/16 Reported Zyprexa (Olanzapine) 2.5 Mg Tab 2.5 Mg PO HS 07/24/16 Reported Therems M (Multiple Vitamins W/ Minerals) 1 Tab Tab 1 Tab PO QAM 07/24/16 Reported D 5000 (Cholecalciferol) 5,000 Unit Cap 5,000 Units PO QAM 07/24/16 Reported Lexapro (Escitalopram Oxalate) 5 Mg Tab 5 Mg PO QAM 11/18/15 Reported TAKE WITH 10MG FOR TOTAL OF 15 MG. Zenpep 02156 Unit (Pancrelipase (Lipase-Protease-) 1 Cap Cap 20,000 Units PO TIDM 11/18/15 Reported Olanzapine 2.5 Mg Tab 1 Tab PO HS 10/06/15 Reported Donepezil HCl 5 Mg Tab 5 Mg PO HS 10/06/15 Reported Tylenol (Acetaminophen) 325 Mg Tab 650 Mg PO Q4 PRN 06/12/15 Reported MAX APAP 24HRS= 3GM Vitamin B-12 (Cyanocobalamin) 1,000 Mcg Sub 3,000 Mcg PO QAM 12/09/14 Reported Travatan Z (Travoprost) 0.004 % Tip 1 Drops OPB HS 12/09/14 Reported Inpatient Medications: Current Inpatient Medications Medications (Trade) Dose Ordered Sig/Rae Route Start Time Stop Time Status Last Admin Dose Admin Acetaminophen (Tylenol Tab) 650 mg Q4H PRN PO 07/25/16 02:15 08/24/16 02:14 Al Hydrox/Mg Hydrox/Simethicone (Maalox Max Susp) 15 ml Q4H PRN PO 07/25/16 02:15 08/24/16 02:14 Magnesium Hydroxide (Milk Of Magnesia Susp) 30 ml Q6H PRN PO 07/25/16 02:15 08/24/16 02:14 Polyethylene (Miralax Powder Packet) 17 gm DAILY PRN PO 07/25/16 02:15 08/24/16 02:14 Sodium Chloride 1,000 ml @ 100 mls/hr Q10H IV 07/25/16 03:45 08/24/16 03:44 07/25/16 04:18 100 MLS/HR Acetaminophen (Tylenol Supp) 650 mg Q4H PRN [place] 07/25/16 02:30 08/24/16 02:29 07/25/16 07:38 650 MG Morphine Sulfate (MoRPHine SULFATE INJ) 4 mg Q4H PRN IV 07/25/16 02:30 08/08/16 02:29 07/25/16 05:11 4 MG Diltiazem HCl (TIAzac CAP) 120 mg QAM PO 07/25/16 09:00 08/24/16 08:59 Donepezil HCl (Aricept Tab) 5 mg HS PO 07/25/16 21:00 08/24/16 20:59 Escitalopram Oxalate (Lexapro Tab) 15 mg QAM PO 07/25/16 09:00 08/24/16 08:59 Metoprolol Succinate (Toprol Xl Tab) 50 mg QAM PO 07/25/16 09:00 08/24/16 08:59 Multivitamins/ Minerals (Multivitamin W/ Minerals Tab) 1 tab QAM PO 07/25/16 09:00 08/24/16 08:59 Enteral Nutritional Formula (Boost Glucose Control) 60 can QID PO 07/25/16 09:00 08/24/16 08:59 Olanzapine (Zyprexa Tab) 2.5 mg HS PO 07/25/16 21:00 08/24/16 20:59 Travoprost (Travatan Z) 1 drops HS OPB 07/25/16 21:00 08/24/16 20:59 Cholecalciferol (Vitamin D Tab) 5,000 inter.unit QAM PO 07/25/16 09:00 08/24/16 08:59 Cyanocobalamin (Vitamin B-12 Tab) 3,000 mcg QAM PO 07/25/16 09:00 08/24/16 08:59 Amylase/Lipase/ Protease (Pancreaze (Lipase 10,500U) Cap) 2 cap TIDM PO 07/25/16 08:00 08/24/16 07:59 Insulin Aspart (novoLOG ASPART) SLIDING SCALE G... ACHS SC 07/25/16 06:30 08/24/16 06:59 Insulin Glargine (Lantus Solostar Pen) 12 unit BID SC 07/25/16 09:00 08/24/16 08:59 Miscellaneous Information (Consult Glycemic Management Pharmacy) 1 ea DAILY PRN N/A 07/25/16 02:37 08/24/16 02:36 Piperacillin Sod/ Tazobactam Sod 3.375 gm/Dextrose 115 ml @ 230 mls/hr TODAY@0800 ONCE IV 07/25/16 08:00 07/25/16 08:29 Piperacillin Sod/ Tazobactam Sod (Consult) 1 ea UD PRN N/A 07/25/16 08:15 08/24/16 08:14 Hydralazine HCl (HydrALAZINE INJ) 10 mg Q8H PRN IV. 07/25/16 08:15 08/24/16 08:14 UNV Review of Systems Review of Systems Additional Comments: Pt unable to answer any of my questions this morning. Physical Exam Vital Signs: Vital Signs Past 12 Hours Date Time Temp Pulse Resp B/P (MAP) Pulse Ox O2 Delivery O2 Flow Rate FiO2 07/25/16 07:45 38.1 71 18 199/87 (124) 94 Room Air 07/25/16 03:39 37.5 87 20 148/69 93 Room Air 07/25/16 02:47 38.7 69 18 139/74 93 07/25/16 02:04 38.7 07/25/16 01:58 70 18 148/69 93 Room Air 07/25/16 00:15 38.7 72 18 150/78 93 Room Air 07/24/16 23:17 73 07/24/16 23:13 92 Room Air 07/24/16 23:03 39.2 79 18 180/101 93 Room Air Physical Exam: General Appearance: no apparent distress Eyes: bilateral eyes normal inspection ENT: hearing grossly normal Neck: no JVD Respiratory/Chest: no respiratory distress, no accessory muscle use Cardiovascular: no JVD Extremities: normal inspection Neurologic/Psychiatric: + pertinent finding (the pt is somnolent, and not oriented this morning. Unable to answer my questions) Skin: normal color Assessment & Plan Assessment & Plan Treatment Planned: cystoscopy w/ stent A/P: Left ureteral stone with fever The pt is somnolent with fever this morning. Not oriented, and unable to answer my questions this morning. I did speak with the [place] this morning. They state she has baseline dementia, and is often not oriented to place with episodes of paranoia that someone is stealing her belongings. Her underlying dementia makes it more difficult to differentiate her level of toxicity, but I do recommend she have a cysto with left ureteral stent placement in the setting of fever and suspected sepsis. I have attempted to contact her POA Jose Abbasi to obtain consent this morning. I have left a message, hopefully he returns my call. Case discussed with Dr. Cruz and Dr. Cruz this morning. Thanks for the consult. Will continue to follow along with primary service. Addendum - patient with confusion, fevers, likely urosepsis in the context of left obstructing stone. Not able to participate in decision making. Will proceed to OR for urgent L stent, care d/w POA and telephone consent in chart as noted. Chart reviewed, agree with WATCH ENGINEER assessment. CHARLEY
[2016-07-25] MEDS ORDERED: CONRAY 30% 150ML BOTTLE ONE (08:28)
--- NOTE | 2016-07-25 08:40 | DIAGNOSTIC IMAGING REPORT ---
CHEST 2 VIEWS ROUTINE CLINICAL HISTORY: Preoperative chest COMPARISON STUDY: 07/24/2016 FINDINGS: The heart is mildly enlarged. There is blunting of the posterior costophrenic angle suggesting trace pleural effusions. There is bibasal interstitial thickening. There is a 12 mm opacity at the left lung base. This is not visualized on either the prior 2 examinations, favoring a summation. This finding can be reevaluated on subsequent studies.[ IMPRESSION: 1. Mild cardiomegaly 2. Trace pleural effusions 3. Basilar septal thickening/atelectasis 4. 12 mm opacity at the left lung base, likely representing a summation Electronically signed by: Linden Atwood M.D. 07/25/2016 8:39 AM Dictated Date/Time: 07/25/2016 8:37 AM
[2016-07-25] MEDS: BOOST GLUCOSE CONTROL PO SCH ×4 (09:00→21:15)
[2016-07-25] MEDS ORDERED: INSULIN GLARGINE SOLOSTAR 100 UNITS/ML 3 ML PEN SC SCH ×2 (09:00→21:00)
[2016-07-25] MEDS ORDERED: ESCITALOPRAM OXALATE 10 MG TAB PO SCH (09:00)
[2016-07-25] MEDS ORDERED: FENTANYL CITRATE INJ 50 MCG/1 ML 2 ML VIAL ONE (09:39)
--- NOTE | 2016-07-25 09:48 | Hospitalist Progress Note ---
Hospitalist Progress Note Date of Service Jul 25, 2016. Subjective Pt evaluation today including: conversation w/ patient, physical exam, chart review, lab review, conversation w/ hr business partner consultant (Padmaja ZUÑIGA) Pt febrile all through the night. Unable to give me any history. Can tell me her name. Moaning in pain at times but not able to localize it for me. I saw her down in pre-op holding area. Constitutional: + fever Additional Comments: unable to obtain due to dementia and delirium Objective Vital Signs Date Time Temp Pulse Resp B/P (MAP) Pulse Ox O2 Delivery O2 Flow Rate FiO2 07/25/16 07:45 38.1 71 18 199/87 (124) 94 Room Air 07/25/16 03:39 37.5 87 20 148/69 93 Room Air 07/25/16 02:47 38.7 69 18 139/74 93 07/25/16 02:04 38.7 07/25/16 01:58 70 18 148/69 93 Room Air 07/25/16 00:15 38.7 72 18 150/78 93 Room Air 07/24/16 23:17 73 07/24/16 23:13 92 Room Air 07/24/16 23:03 39.2 79 18 180/101 93 Room Air Physical Exam General Appearance: + mild distress, + thin Eyes: normal inspection, sclerae normal ENT: + pertinent finding (dry mucus membranes) Neck: supple Respiratory/Chest: lungs clear, normal breath sounds, no respiratory distress, no accessory muscle use Cardiovascular: regular rate, rhythm, no edema, no gallop, no murmur Abdomen: normal bowel sounds, soft, + tenderness (left lower quadrant) Extremities: non-tender, normal inspection, no pedal edema, no calf tenderness Neurologic/Psychiatric: alert, + disoriented Skin: normal color, warm/dry, no rash Laboratory Results Last 24 Hours Test 07/24/16 23:18 07/25/16 02:50 07/25/16 07:34 07/25/16 07:37 White Blood Count 12.17 K/uL 12.26 K/uL Red Blood Count 4.44 M/uL 4.36 M/uL Hemoglobin 13.1 g/dL 13.2 g/dL Hematocrit 39.4 % 38.9 % Mean Corpuscular Volume 88.7 fL 89.2 fL Mean Corpuscular Hemoglobin 29.5 pg 30.3 pg Mean Corpuscular Hemoglobin Concent 33.2 g/dl 33.9 g/dl Platelet Count 225 K/uL 211 K/uL Mean Platelet Volume 9.2 fL 9.0 fL Neutrophils (%) (Auto) 81.1 % 82.4 % Lymphocytes (%) (Auto) 7.3 % 6.5 % Monocytes (%) (Auto) 11.2 % 10.6 % Eosinophils (%) (Auto) 0.0 % 0.0 % Basophils (%) (Auto) 0.2 % 0.2 % Neutrophils # (Auto) 9.86 K/uL 10.10 K/uL Lymphocytes # (Auto) 0.89 K/uL 0.80 K/uL Monocytes # (Auto) 1.36 K/uL 1.30 K/uL Eosinophils # (Auto) 0.00 K/uL 0.00 K/uL Basophils # (Auto) 0.03 K/uL 0.02 K/uL RDW Standard Deviation 45.5 fL 45.1 fL RDW Coefficient of Variation 13.8 % 13.7 % Immature Granulocyte % (Auto) 0.2 % 0.3 % Immature Granulocyte # (Auto) 0.03 K/uL 0.04 K/uL Bedside Lactic Acid Venous 1.61 mmol/L Lactic Acid Level 1.3 mmol/L Sodium Level 133 mmol/L Potassium Level 4.6 mmol/L Chloride Level 98 mmol/L Carbon Dioxide Level 27 mmol/L Anion Gap 8.0 mmol/L Blood Urea Nitrogen 23 mg/dl Creatinine 1.60 mg/dl Est Creatinine Clear Calc Drug Dose 21.4 ml/min Estimated GFR () 34.4 Estimated GFR (Non- 29.7 BUN/Creatinine Ratio 14.1 Random Glucose 229 mg/dl Calcium Level 8.8 mg/dl Bedside Glucose 219 mg/dl Assessment and Plan 80-year-old female with a past medical history of CAD s/p bare metal stent, chronic diastolic CHF, chronic pancreatitis, diabetes mellitus, dyslipidemia, depression resident of the [facility] presented to the ER with complaints of altered sensorium and continuing fever. Was found to have a urinary tract infection and CT abdomen and pelvis revealed a left-sided UPJ obstruction with 11 mm calculus with perinephric stranding. Sepsis secondary to Complicated urinary tract infection and ureterolithiasis, Acute metabolic encephalopathy: - Continue IV fluids - UA positive for large leuk esterase - Blood cultures and urine cultures pending from previous ER visit - Continue Zosyn -going for stent placement with Urology today - Pain control with morphine -tylenol prn fevers - CT abdomen and pelvis: - Urology consult due to 11 mm stone in left UPJ BEBA-instructor pilot up to 1.6 from baseline 0.6, likely secondary to hydronephrosis -continue IVFs relieve obstruction -follow PRP Diabetes mellitus type II: HgbA1C 10.7% in 12/2015 -repeat A1C - Continue Lantus and insulin sliding scale CAD s/p bare metal stent, Chronic diastolic CHF, HTN--> BPs very elevated likely secondary to pain -continue Toprol, diltiazem -hydralazine IV prn -not on ASA on home med rec but was on it at last hospitalization 10/2015--> will restart tomorrow AM Depression: - Continue Lexapro Behavioral issues/[id number] Alzheimer's: -Continue olanzapine -supportive care Chronic Pancreatitis: - Continue pancrease DVT prophylaxis: SCDs, add on Heparin SQ when ok with Urol Disposition: Admitted to [facility]
[2016-07-25] MEDS ORDERED: PROPOFOL IV EMULSION 10 MG/ML 20 ML VIAL IV ONE (10:08)
[2016-07-25] MEDS ORDERED: EpHEDrine SULFATE 50MG/5ML SYR ONE (10:08)
[2016-07-25] MEDS ORDERED: LIDOCAINE HCL 2% 2 ML VIAL (20MG/ML) ONE (10:08)
--- NOTE | 2016-07-25 10:22 | DIAGNOSTIC IMAGING REPORT ---
INTRAOPERATIVE RADIOGRAPHS CLINICAL HISTORY: Nephrolithiasis. Left ureteral stent placement. Fluoroscopy time: 22 seconds. FINDINGS: 3 spot fluoroscopic views of the left mid abdomen from a retrograde ureterogram with ureteral stent placement are correlated with abdominal CT dated 07/25/2016. The first 2 images show hydroureter. There are filling defects identified in the left ureter, likely corresponding to the patient's known ureteral calculi. The third image shows the proximal end of a left ureteral stent in place. IMPRESSION: Intraoperative images from a left-sided retrograde ureterogram and ureteral stent procedure as above. See operative report for detailed findings. Electronically signed by: Gray Cuevas M.D. 07/25/2016 10:21 AM Dictated Date/Time: 07/25/2016 10:19 AM
--- NOTE | 2016-07-25 10:48 | Anesthesiology Progress Note ---
Anesthesia Post Op Note Date & Time Jul 25, 2016 at 10:48 Vital Signs Pain Intensity: 0 Vital Signs Past 12 Hours Date Time Temp Pulse Resp B/P (MAP) Pulse Ox O2 Delivery O2 Flow Rate FiO2 07/25/16 10:43 37.2 72 18 135/65 95 Room Air 07/25/16 10:35 37.2 74 18 120/57 97 Room Air 07/25/16 10:25 74 18 121/56 100 Mask 10 07/25/16 10:16 37.1 71 16 125/61 99 Mask 10 07/25/16 08:00 Room Air 07/25/16 07:45 38.1 71 18 199/87 (124) 94 Room Air 07/25/16 03:39 37.5 87 20 148/69 93 Room Air 07/25/16 02:47 38.7 69 18 139/74 93 07/25/16 02:04 38.7 07/25/16 01:58 70 18 148/69 93 Room Air 07/25/16 00:15 38.7 72 18 150/78 93 Room Air 07/24/16 23:17 73 07/24/16 23:13 92 Room Air 07/24/16 23:03 39.2 79 18 180/101 93 Room Air Notes Mental Status: alert / awake / arousable, participated in evaluation Pt Amnestic to Procedure: Yes Nausea / Vomiting: adequately controlled Pain: adequately controlled Airway Patency, RR, SpO2: stable & adequate BP & HR: stable & adequate Hydration State: stable & adequate Anesthetic Complications: no major complications apparent
[2016-07-25 10:53] VITALS: BP 122/65; PULSE 76; TEMP 37; O2SAT 97
[2016-07-25 11:10] LABS: ESTIMATED AVERAGE GLUCOSE 174 mg/dl; HA1C FLAG Normal (Normal)
[2016-07-25] MEDS: CYANOCOBALAMIN 500 MCG TAB (VIT B-12) PO SCH (11:40)
[2016-07-25] MEDS: CHOLECALCIFEROL 1000 INTER.UNIT TAB PO SCH (11:40)
[2016-07-25] MEDS: PANCREAZE (LIPASE 10,500U) CAP PO SCH ×3 (11:40→17:00)
[2016-07-25] MEDS: ESCITALOPRAM OXALATE 10 MG TAB PO SCH (11:40)
[2016-07-25] MEDS: CEROVITE ADV FORMULA TAB PO SCH (11:41)
[2016-07-25] MEDS: METOPROLOL SUCC 50MG EXT REL TAB PO SCH (11:41)
[2016-07-25] MEDS: DILTIAZEM HCL 120 MG EXT REL CAP PO SCH (11:42)
[2016-07-25] MEDS ORDERED: PIPERACILL/TAZOBAC IV 3.375 GM in DEXTROSE 5% 100ML 100 ML IV SCH (12:00)
--- NOTE | 2016-07-25 12:54 | [facility] Post Operative Brief Note ---
Immediate Operative Summary Operative Date Jul 25, 2016. Pre-Operative Diagnosis Left ureteral stone and urosepsis Post-Operative Diagnosis Same Procedure(s) Performed Cystoscopy, Left Ureteral Stent Insertion, Left Retrograde pyelogram Surgeon Dr Barbara Cruz Rn Cvor Surgeon(s) NA Estimated Blood Loss 0 Findings Good stent position after completion, purulent urine from L kidney after placement of wire Specimens none Drains 6 fr multilength L ureteral stent Anesthesia MAC Complication(s) None Disposition Recovery Room / PACU
[2016-07-25 13:43] VITALS: Ht 157.5 cm; Wt 53.4 kg
[2016-07-25 14:05] VITALS: TEMP 38.6
--- NOTE | 2016-07-25 15:03 | Pharmacy Progress Note ---
Glycemic Control Intl Consult Date of Service Jul 25, 2016. Scope Glycemic Pharmacist consulted by Dr King on 07/25/16 for glycemic control and to write orders per [facility] inpatient glycemic control protocol Objective Weight (Kilograms): 53.400 Accuchecks BSG (last 24hrs): Test 07/25/16 07:34 07/25/16 07:37 07/25/16 10:34 07/25/16 11:15 Random Glucose 229 mg/dl (70-99) Bedside Glucose 219 mg/dl (70-90) 221 mg/dl (70-90) 194 mg/dl (70-90) HbA1c Test 07/25/16 07:34 Hemoglobin A1c 7.7 % (4.5-5.6) H Recent Pertinent Medications Outpatient Anti-diabetic Regimen: * Lantus 12 units SQ BID * NovoLog per scale The patient is currently receiving: * Basal insulin: Lantus 12 units every 12 hours * Correctional Insulin: Novolog Correction per scale ACHS Goal Range: Low 140 mg/dL - High 180 mg/dL Correction Factor: 35 mg/dL/unit * Prandial insulin: Per carb ratio of 1 unit per 10 grams CHO consumed Risk Factors for Insulin Resistance: * Infection * Recent Surgery * Diet Assessment & Plan ASSESSMENT: * 80yo T2DM female with adequate degree of outpatient control per recent A1c * Pt is maintained on Sq basal bolus insulin regimen as an outpatient - total daily dose unknown but basal insulin dosing is Lantus 12 units SQ BID * Pt NPO this AM for OR and has had decreased PO intake after surgery (did not eat lunch) * Outpatient basal insulin dosing may need decreased secondary to decreased PO intake * ADA & AACE recommend a goal blood sugar range 140-180 mg/dl for the majority of critically ill & non-critically ill patients. However, more stringent targets may be selected in individual cases. PLAN FOR INPATIENT GLYCEMIC CONTROL: * Basal insulin * Decrease to Lantus 9 units SQ BID secondary to decreased PO intake * Bolus insulin * NovoLog per scale ACHS or Q6hrs while NPO * Goal Range: Low 140 mg/dL - High 180 mg/dL * Correction Factor: 35 mg/dL/unit * Nutritional / Prandial insulin per carb ratio of 1 unit per 10 grams CHO consumed * Please note that the plan above was derived based on current level of insulin resistance and hospital stress. These recommendations are appropriate for inpatient admission only. Plan of care upon discharge will need to be reassessed to avoid potential outpatient hypo/hyperglycemia. Thank you.
[2016-07-25 15:39] VITALS: BP 104/55; PULSE 71; TEMP 37.1; O2SAT 91
[2016-07-25] MEDS: PIPERACILL/TAZOBAC IV 3.375 GM in DEXTROSE 5% 100ML IV SCH ×2 (15:57→23:37)
--- NOTE | 2016-07-25 19:04 | OPERATIVE REPORT ---
DATE OF OPERATION: 07/25/2016 PREOPERATIVE DIAGNOSES: Left renal and ureteropelvic junction stones with suspected urosepsis and dementia. POSTOPERATIVE DIAGNOSES: Same. PROCEDURE: Emergent cystoscopy, left retrograde pyelography and left ureteral stent placement. SURGEON: Dr. Vlad Cruz. SOLAR SALES ADVISOR: None. ANESTHESIA: Monitored anesthesia care with sedation. COMPLICATIONS: None. FINDINGS: Cloudy urine after drainage of the left kidney with a wire, good stent position on fluoroscopy. DRAINS LEFT IN PLACE: Include a 6-Ecuadorean multilength left-sided double-J ureteral stent. ESTIMATED BLOOD LOSS: Minimal. SPECIMENS SENT TO PATHOLOGY: None. BRIEF HISTORY: Ms. Ni is an 80-year-old demented female who is admitted to the hospital for fevers, mental status changes and suspected urinary tract infection and sepsis. Please see urology consultation for further details. Unfortunately, the patient's consent must be obtained from a power of sales designer seeing the patient's disorientation today. It is unclear to what degree this is different from her baseline. The patient has no family, with which we discussed her care and p.o. is provided by her facility. Seeing the presence of an obstructing stone and likely urosepsis, emergent left ureteral stent placement is being undergone. Consent was reviewed in the chart preoperatively by myself. Intravenous antibiotic coverage with broad spectrum agents has been provided by the primary service. SCDs used for DVT prophylaxis. PROCEDURE: The patient was properly identified and brought to the operative suite after identification of appropriate consent on the chart. Monitored anesthesia care with sedation was initiated and the patient was prepped and draped in standard fashion for this procedure. real time analyst-out procedure was followed. A 22-Ecuadorean rigid resectoscope was passed into the bladder under direct visualization and the patient was noted to have cloudy urine with ureteral orifices in normal anatomic location bilaterally. No intravesical masses or papillary lesions were appreciated. Bladder was generously irrigated and then left-sided ureteral orifice was addressed using an open-ended catheter. Gentle retrograde pyelography was performed demonstrating a mildly tortuous but a relatively normal caliber distal ureter up to the level of the ureteropelvic junction with little proximal passage of contrast consistent with a stone obstruction. The stone was not clearly visible on retrograde pyelography or computer meteorologist imaging. Sensor tip wire was easily advanced up to the level of the left renal pelvis with immediate return of thick cloudy urine from this side consistent with a proximal urinary tract infection. This was followed by a 6-Ecuadorean multilength stent with a double coil present within the bladder. Redundant coil present within the kidney. Bladder was drained, the cystoscope was removed, position was confirmed on fluoroscopy. Anesthesia was reversed. The patient was transferred to recovery room in stable condition. FOLLOWUP CARE: The patient will be readmitted to the floor for standard postoperative management. Will check her KUB prior to discharge home, to evaluate for stone visibility. I attest to the content of the Intraoperative Record and any orders documented therein. Any exception s are noted below.
[2016-07-25] MEDS ORDERED: OLANZAPINE 2.5 MG TAB PO SCH (21:00)
[2016-07-25] MEDS: DONEPEZIL HCL 5 MG TAB PO SCH (21:15)
[2016-07-25] MEDS: TRAVOPROST Z 0.004% OPH SOLN 2.5 ML BTL OPB SCH (21:15)
[2016-07-25] MEDS: OLANZAPINE 2.5 MG TAB PO SCH (21:15)
[2016-07-25 23:50] VITALS: BP 129/67; PULSE 57; TEMP 36.6; O2SAT 94
[2016-07-26 00:10] VITALS: TEMP 37
[2016-07-26] MEDS: INSULIN ASPART 100 UNITS/ML 3 ML PEN SC SCH ×4 (06:30→20:38)
[2016-07-26 07:30] VITALS: BP 147/70; PULSE 63; TEMP 37.2; O2SAT 93
--- NOTE | 2016-07-26 08:26 | Progress Note ---
Subjective Date of Service: Jul 26, 2016. Subjective Pt evaluation today including: conversation w/ patient, chart review, lab review 80 yo female s/p left ureteral stent placement for stone with fever. The pt is more alert and talkative this morning, however incoherent d/t dementia. She has been afebrile overnight. Problem List Medical Problems: (1) Acute paranoia Status: Acute (2) Aspiration pneumonia Status: Acute (3) Confusion Status: Acute (4) Dementia Status: Acute (5) Fall Status: Acute (6) Fever Status: Acute (7) Fracture of right hip Status: Acute (8) Left sided abdominal pain Status: Acute (9) Leucocytosis Status: Acute (10) Paranoid states (delusional disorders) Status: Acute (11) Sepsis Status: Acute (12) Sepsis Status: Acute (13) Urinary tract infection Status: Acute (14) UTI (urinary tract infection) Status: Acute Review of Systems Pt unable to answer questions appropriately d/t mental status. Objective Vital Signs Date Time Temp Pulse Resp B/P (MAP) Pulse Ox O2 Delivery O2 Flow Rate FiO2 07/26/16 07:30 37.2 63 16 147/70 (95) 93 Room Air 07/26/16 00:10 37.0 07/25/16 23:50 36.6 57 20 129/67 (87) 94 Room Air 07/25/16 23:34 Room Air 07/25/16 16:00 Room Air 07/25/16 15:39 37.1 71 16 104/55 (71) 91 Room Air 07/25/16 14:05 38.6 07/25/16 10:53 37.0 76 18 122/65 (84) 97 Room Air 07/25/16 10:43 37.2 72 18 135/65 95 Room Air 07/25/16 10:35 37.2 74 18 120/57 97 Room Air 07/25/16 10:25 74 18 121/56 100 Mask 10 07/25/16 10:16 37.1 71 16 125/61 99 Mask 10 Physical Exam General Appearance: no apparent distress Eyes: normal inspection ENT: hearing grossly normal Neck: no JVD Respiratory/Chest: no respiratory distress, no accessory muscle use Cardiovascular: no JVD Extremities: normal inspection Neurologic/Psychiatric: alert, normal mood/affect Skin: normal color Laboratory Results Last 24 Hours Test 07/25/16 10:34 07/25/16 11:15 07/25/16 16:34 07/25/16 20:02 Bedside Glucose 221 mg/dl 194 mg/dl 165 mg/dl 165 mg/dl Test 07/26/16 04:44 07/26/16 07:18 Bedside Glucose 82 mg/dl Assessment and Plan POD #1 s/p left ureteral stent placement for stone with fever AFVSS. Pt clinically improved today. Less somnolent. Smiling and quite talkative, although incoherent and unable to answer questions appropriately d/t underlying dementia. Recommend d/c after she has remained afebrile for 24hrs. Recommend transitioning her to 2 weeks or oral abx such as Cipro or Bactrim DS. Will plan to f/u with her in 1-2 weeks for plan for ESWL vs URS/LL. Will arrange Thanks for allowing us to participate in this pt's care. No further management at this time. Recall PRN issues. Discharge planning: halfway facility
[2016-07-26] MEDS: ASPIRIN 81 MG ECTAB PO SCH ×2 (09:00→09:05)
[2016-07-26] MEDS: BOOST GLUCOSE CONTROL PO SCH ×4 (09:00→20:50)
[2016-07-26] MEDS: CEROVITE ADV FORMULA TAB PO SCH ×2 (09:00→09:04)
[2016-07-26] MEDS: CHOLECALCIFEROL 1000 INTER.UNIT TAB PO SCH (09:00)
[2016-07-26] MEDS: PIPERACILL/TAZOBAC IV 3.375 GM in DEXTROSE 5% 100ML IV SCH ×2 (09:01→16:00)
[2016-07-26] MEDS: METOPROLOL SUCC 50MG EXT REL TAB PO SCH (09:04)
[2016-07-26] MEDS: ESCITALOPRAM OXALATE 10 MG TAB PO SCH (09:04)
[2016-07-26] MEDS: PANCREAZE (LIPASE 10,500U) CAP PO SCH ×3 (09:04→17:21)
[2016-07-26] MEDS: CYANOCOBALAMIN 500 MCG TAB (VIT B-12) PO SCH (09:05)
[2016-07-26] MEDS: DILTIAZEM HCL 120 MG EXT REL CAP PO SCH (09:05)
[2016-07-26] MEDS: INSULIN GLARGINE SOLOSTAR 100 UNITS/ML 3 ML PEN SC SCH ×2 (09:14→20:41)
[2016-07-26 09:17] LABS: BASO % 0.4 %; BASO ABS # 0.03 K/uL (0-0.2); COMPLETE YES; EOS % 2.1 %; HEMATOCRIT 32.8 % (37-47); IG% 0.1 %; LYMPH % 10.9 %; MEAN CELL VOLUME 90.1 fL (80-100); MEAN CORPUSCULAR HEMOGLOBIN 29.9 pg (25-34); MEAN CORPUSCULAR HGB CONC 33.2 g/dl (32-36); MEAN PLATELET VOLUME 9.4 fL (7.4-10.4); MONO % 12.8 %; NEUT % 73.7 %; PLATELET COUNT 180 K/uL (130-400); RED BLOOD COUNT 3.64 M/uL (4.2-5.4); WHITE BLOOD COUNT 8.23 K/uL (4.8-10.8)
--- NOTE | 2016-07-26 09:49 | Anesthesiology Progress Note ---
Anesthesia Post Op Note Date & Time Jul 26, 2016 at 09:47 Vital Signs Pain Intensity: 0.0 Vital Signs Past 12 Hours Date Time Temp Pulse Resp B/P (MAP) Pulse Ox O2 Delivery O2 Flow Rate FiO2 07/26/16 07:30 37.2 63 16 147/70 (95) 93 Room Air 07/26/16 00:10 37.0 07/25/16 23:50 36.6 57 20 129/67 (87) 94 Room Air 07/25/16 23:34 Room Air Notes Nausea / Vomiting: adequately controlled Airway Patency, RR, SpO2: stable & adequate BP & HR: stable & adequate Hydration State: stable & adequate Pt confused. Disoriented. Unable to interview.
[2016-07-26 09:55] LABS: CALCIUM 8.3 mg/dl (8.5-10.1); CREATININE 1.1 mg/dl (0.60-1.20); POTASSIUM 3.6 mmol/L (3.5-5.1)
--- NOTE | 2016-07-26 09:59 | Hospitalist Progress Note ---
Hospitalist Progress Note Date of Service Jul 26, 2016. Subjective Pt evaluation today including: conversation w/ patient Much improved today, still disoriented but more awake and alert, follows some commands, afebrile since yesterday afternoon Additional Comments: unable to obtain due to dementia Objective Vital Signs Date Time Temp Pulse Resp B/P (MAP) Pulse Ox O2 Delivery O2 Flow Rate FiO2 07/26/16 07:30 37.2 63 16 147/70 (95) 93 Room Air 07/26/16 00:10 37.0 07/25/16 23:50 36.6 57 20 129/67 (87) 94 Room Air 07/25/16 23:34 Room Air 07/25/16 16:00 Room Air 07/25/16 15:39 37.1 71 16 104/55 (71) 91 Room Air 07/25/16 14:05 38.6 07/25/16 10:53 37.0 76 18 122/65 (84) 97 Room Air 07/25/16 10:43 37.2 72 18 135/65 95 Room Air 07/25/16 10:35 37.2 74 18 120/57 97 Room Air 07/25/16 10:25 74 18 121/56 100 Mask 10 07/25/16 10:16 37.1 71 16 125/61 99 Mask 10 Physical Exam General Appearance: WD/WN, no apparent distress Eyes: normal inspection, sclerae normal ENT: hearing grossly normal Neck: trachea midline Respiratory/Chest: lungs clear, normal breath sounds, no respiratory distress, no accessory muscle use Cardiovascular: regular rate, rhythm, no edema, no gallop, no murmur Abdomen: normal bowel sounds, non tender, soft, no organomegaly Extremities: non-tender, normal inspection, no pedal edema, no calf tenderness Neurologic/Psychiatric: alert, + disoriented (when asked for her name she states "100", when asked where she was, she states "oooohhh.") Skin: normal color, warm/dry, no rash Laboratory Results Last 24 Hours Test 07/25/16 10:34 07/25/16 11:15 07/25/16 16:34 07/25/16 20:02 Bedside Glucose 221 mg/dl 194 mg/dl 165 mg/dl 165 mg/dl Test 07/26/16 07:18 07/26/16 08:55 Bedside Glucose 82 mg/dl White Blood Count 8.23 K/uL Red Blood Count 3.64 M/uL Hemoglobin 10.9 g/dL Hematocrit 32.8 % Mean Corpuscular Volume 90.1 fL Mean Corpuscular Hemoglobin 29.9 pg Mean Corpuscular Hemoglobin Concent 33.2 g/dl Platelet Count 180 K/uL Mean Platelet Volume 9.4 fL Neutrophils (%) (Auto) 73.7 % Lymphocytes (%) (Auto) 10.9 % Monocytes (%) (Auto) 12.8 % Eosinophils (%) (Auto) 2.1 % Basophils (%) (Auto) 0.4 % Neutrophils # (Auto) 6.07 K/uL Lymphocytes # (Auto) 0.90 K/uL Monocytes # (Auto) 1.05 K/uL Eosinophils # (Auto) 0.17 K/uL Basophils # (Auto) 0.03 K/uL RDW Standard Deviation 47.2 fL RDW Coefficient of Variation 14.1 % Immature Granulocyte % (Auto) 0.1 % Immature Granulocyte # (Auto) 0.01 K/uL Assessment and Plan 80-year-old female with a past medical history of CAD s/p bare metal stent, chronic diastolic CHF, chronic pancreatitis, diabetes mellitus, dyslipidemia, depression resident of the [facility] presented to the ER with complaints of altered sensorium and continuing fever. Was found to have a urinary tract infection and CT abdomen and pelvis revealed a left-sided UPJ obstruction with 11 mm calculus with perinephric stranding. Sepsis secondary to Complicated urinary tract infection and ureterolithiasis, Acute metabolic encephalopathy. Resolving no s/p ureteral stent placement on 07/25. Tmax 38.6 yesterday afternoon. WBC count back to normal. Ur cx no growth, BCx NGTD - dc IV fluids - UA positive for large leuk esterase continue to follow BCxs - Continue Zosyn and then dc to home on Cipro x 2 weeks total -f/u with Urology 1-2 weeks for ESWL vs URS/LL-Urol to arrange f/u appt - Pain control with morphine -tylenol prn fevers BEBA-type copy examiner up to 1.6 from baseline 0.6, likely secondary to hydronephrosis--> labs pending today, will follow -received IVFs relieved obstruction and should improve now -follow PRP Diabetes mellitus type II with hyperglycemia on admission in 200s. Glucose now improving on POC with improvement of infection: HgbA1C 10.7% in 12/2015 -repeat A1C pending - Continue Lantus and insulin sliding scale CAD s/p bare metal stent, Chronic diastolic CHF, HTN--> BPs previously very elevated likely secondary to pain--> now much improved -continue Toprol, diltiazem -hydralazine IV prn -not on ASA on home med rec but was on it at last hospitalization 10/2015--> restarted today Depression: - Continue Lexapro Behavioral issues/Pqceciib-tki-Oaznxgib Alzheimer's: -Continue olanzapine, donepezil -supportive care Chronic Pancreatitis: - Continue pancrease DVT prophylaxis: SCDs, add on Heparin SQ if ok with Urol Disposition: to [facility] [place] [facility] PT/OT evals
[2016-07-26 10:50] LABS: ESTIMATED AVERAGE GLUCOSE 171 mg/dl; HA1C FLAG Normal (Normal)
[2016-07-26 11:22] VITALS: BP 125/62; PULSE 51; TEMP 37; O2SAT 97
[2016-07-26] MEDS: HEPARIN SOD 5000 UNIT/0.5 ML CARP SQ SCH ×3 (12:31→20:55)
--- NOTE | 2016-07-26 13:29 | Pharmacy Progress Note ---
Glycemic Control: Progress Nt Date of Service Jul 26, 2016. Scope Glycemic Pharmacist consulted by Dr. King on 07/25/16 for glycemic control and to write orders per [facility] inpatient glycemic control protocol. Objective Accuchecks BSG (last 24hrs): Test 07/25/16 16:34 07/25/16 20:02 07/26/16 07:18 07/26/16 08:55 Bedside Glucose 165 mg/dl (70-90) 165 mg/dl (70-90) 82 mg/dl (70-90) Random Glucose 202 mg/dl (70-99) Test 07/26/16 11:29 Bedside Glucose 153 mg/dl (70-90) Laboratory Data (last 24hrs) Test 07/26/16 08:55 Anion Gap 7.0 mmol/L BUN/Creatinine Ratio 19.0 Blood Urea Nitrogen 21 mg/dl Creatinine 1.10 mg/dl Hemoglobin A1c 7.6 % Potassium Level 3.6 mmol/L Sodium Level 139 mmol/L White Blood Count 8.23 K/uL Red Blood Count 3.64 M/uL Hemoglobin 10.9 g/dL Hematocrit 32.8 % Mean Corpuscular Volume 90.1 fL Mean Corpuscular Hemoglobin 29.9 pg Mean Corpuscular Hemoglobin Concent 33.2 g/dl Platelet Count 180 K/uL Mean Platelet Volume 9.4 fL Neutrophils (%) (Auto) 73.7 % Lymphocytes (%) (Auto) 10.9 % Monocytes (%) (Auto) 12.8 % Eosinophils (%) (Auto) 2.1 % Basophils (%) (Auto) 0.4 % Neutrophils # (Auto) 6.07 K/uL Lymphocytes # (Auto) 0.90 K/uL Monocytes # (Auto) 1.05 K/uL Eosinophils # (Auto) 0.17 K/uL Basophils # (Auto) 0.03 K/uL HbA1c: Test 07/26/16 08:55 Hemoglobin A1c 7.6 % (4.5-5.6) H Recent Pertinent Medications Outpatient Anti-diabetic Regimen: * Lantus 12 units BID, Novolog SS * A1c = 7.6 % on Risk Factors for Insulin Resistance: * Infection:UTI (ureteral stone), On Zosyn * IVF: NS at 100 ml/hr * Recent Surgery: POD 1 - Left ureteral stent * Diet: DM2 Assessment & Plan ASSESSMENT: * ADA & AACE recommend a goal blood sugar range 140-180 mg/dl for the majority of critically ill & non-critically ill patients. However, more stringent targets may be selected in individual cases. 07/25/16: * 80yo T2DM female with adequate degree of outpatient control per recent A1c * Pt is maintained on Sq basal bolus insulin regimen as an outpatient - total daily dose unknown but basal insulin dosing is Lantus 12 units SQ BID * Pt NPO this AM for OR and has had decreased PO intake after surgery (did not eat lunch) * Outpatient basal insulin dosing may need decreased secondary to decreased PO intake 07/26/16: * PO intake remains inadequate. FBS this morning was 82 mg/dl. Therefore, will reduce Lantus further to avoid inducing hypoglcyemia. * Continue current Novolog CF/CR parameters. Since BSGs have remained controlled and pt not eating, not much Novolog has been administered so far. PLAN FOR INPATIENT GLYCEMIC CONTROL: * Decrease Lantus to 7 units SQ BID * Novolog ACHS * Continue correction factor 35 mg/dl/unit * Continue carb ratio of 1 unit per 10 grams CHO consumed * Continue goal range Low 140 mg/dL - High 180 mg/dL RECOMMENDATIONS FOR DISCHARGE: * Based upon most recent A1c it seems appropriate to resume pt's home DM regimen upon discharge. * Please note that the plan above was derived based on current level of insulin resistance and hospital stress. These recommendations are appropriate for inpatient admission only. Plan of care upon discharge will need to be reassessed to avoid potential outpatient hypo/hyperglycemia. Thank you.
[2016-07-26 15:01] VITALS: BP 121/58; PULSE 62; TEMP 37.1; O2SAT 95
[2016-07-26 16:49] VITALS: O2SAT 95
[2016-07-26] MEDS: DONEPEZIL HCL 5 MG TAB PO SCH (20:35)
[2016-07-26] MEDS: TRAVOPROST Z 0.004% OPH SOLN 2.5 ML BTL OPB SCH (20:35)
[2016-07-26] MEDS: OLANZAPINE 2.5 MG TAB PO SCH (20:36)
[2016-07-26 23:35] VITALS: BP 138/75; PULSE 50; TEMP 37.4; O2SAT 95
[2016-07-27] MEDS: PIPERACILL/TAZOBAC IV 3.375 GM in DEXTROSE 5% 100ML IV SCH ×3 (00:01→16:00)
[2016-07-27] MEDS: HEPARIN SOD 5000 UNIT/0.5 ML CARP SQ SCH ×2 (05:42→13:29)
[2016-07-27 07:27] VITALS: BP_SYST 175; BP_SYST 181; BP_DIAS 83; BP_DIAS 85; PULSE 55; TEMP 37; O2SAT 95
[2016-07-27 07:40] LABS: BASO % 0.6 %; BASO ABS # 0.03 K/uL (0-0.2); COMPLETE YES; HEMATOCRIT 35.1 % (37-47); IG% 0.2 %; LYMPH % 19.6 %; MEAN CELL VOLUME 89.5 fL (80-100); MEAN CORPUSCULAR HEMOGLOBIN 30.4 pg (25-34); MEAN CORPUSCULAR HGB CONC 33.9 g/dl (32-36); MEAN PLATELET VOLUME 9.1 fL (7.4-10.4); MONO % 14.7 %; NEUT % 55.9 %; PLATELET COUNT 202 K/uL (130-400); RED BLOOD COUNT 3.92 M/uL (4.2-5.4); WHITE BLOOD COUNT 5.11 K/uL (4.8-10.8)
[2016-07-27] MEDS: ASPIRIN 81 MG ECTAB PO SCH (07:52)
[2016-07-27] MEDS: CYANOCOBALAMIN 500 MCG TAB (VIT B-12) PO SCH (07:52)
[2016-07-27] MEDS: ESCITALOPRAM OXALATE 10 MG TAB PO SCH (07:53)
[2016-07-27] MEDS: METOPROLOL SUCC 50MG EXT REL TAB PO SCH (07:53)
[2016-07-27] MEDS: CEROVITE ADV FORMULA TAB PO SCH (07:53)
[2016-07-27] MEDS: INSULIN ASPART 100 UNITS/ML 3 ML PEN SC SCH ×3 (07:54→16:09)
[2016-07-27] MEDS: PANCREAZE (LIPASE 10,500U) CAP PO SCH ×3 (07:54→16:11)
[2016-07-27] MEDS: INSULIN GLARGINE SOLOSTAR 100 UNITS/ML 3 ML PEN SC SCH (08:06)
[2016-07-27 08:17] LABS: BUN/CREATININE RATIO 14.6 (10-20); CREATININE 0.98 mg/dl (0.60-1.20); POTASSIUM 3.3 mmol/L (3.5-5.1)
[2016-07-27 08:40] LABS: CALCIUM 8.5 mg/dl (8.5-10.1)
[2016-07-27] MEDS ORDERED: POTASSIUM CHLORIDE 10 MEQ TABCR PO STA ×2 (08:50)
[2016-07-27] MEDS ORDERED: BOOST GLUCOSE CONTROL PO SCH (09:00)
[2016-07-27] MEDS: DILTIAZEM HCL 120 MG EXT REL CAP PO SCH (10:01)
[2016-07-27] MEDS: CHOLECALCIFEROL 1000 INTER.UNIT TAB PO SCH (10:02)
[2016-07-27 11:30] VITALS: BP 147/77; PULSE 55; TEMP 36.9; O2SAT 96
[2016-07-27] MEDS ORDERED: CPR500 PO (11:48)
[2016-07-27] MEDS ORDERED: ASPEC81 PO (11:48)
--- NOTE | 2016-07-27 11:56 | Discharge Instructions ---
Discharge Instructions Date of Service Jul 27, 2016. Admission Reason for Admission: UTI Discharge Discharge Diagnosis / Problem: Sepsis, UTI, Ureterolithiasis Discharge Goals Goal(s): Improve disease control, Diagnostic testing, Therapeutic intervention Activity Recommendations Activity Level: Assistance Required Therapies: Physical Therapy, Occupational Therapy . Additional Information Patient informed of condition: Yes (but lacks capacity) Advance Directives: No DNR: No Level of Care: Skilled Communicable Disease: No Prognosis: Improving Oxygen at (LPM): N/A Ruano Catheter: No Instructions / Follow-Up Instructions / Follow-Up 80-year-old female with a past medical history of CAD s/p bare metal stent, chronic diastolic CHF, chronic pancreatitis, diabetes mellitus, dyslipidemia, depression and dementia, a resident of [facility] presented to the ER with complaints of altered sensorium and continuing fever. Was found to have a urinary tract infection and CT abdomen and pelvis revealed a left-sided UPJ obstruction with 11 mm calculus with perinephric stranding. Sepsis secondary to Complicated urinary tract infection and ureterolithiasis, Acute metabolic encephalopathy. Resolving no s/p ureteral stent placement on 07/25. TRemains afebrile. WBC count back to normal. Ur cx with mixed organisms, BCx NGTD - received IV fluids initially - UA positive for large leuk esterase and some Yeast but nothing of note grew out on Ur culture, responded well to ureteral stent placement and Zosyn IV continue to follow BCxs after discharge but do not suspect they will turn positive - dc to home on Cipro 500mg po bid x 2 weeks total -f/u with Urology 1-2 weeks for ESWL vs URS/LL-Urol to arrange f/u appt -tylenol prn pain BEBA-system software developer up to 1.6 from baseline 0.6, likely secondary to hydronephrosis-->system software developer 0.98 on day of dc -received IVFs relieved obstruction with stent and improved Diabetes mellitus type II with hyperglycemia on admission in 200s. Glucose now improving on POC with improvement of infection: HgbA1C 10.7% in 12/2015, now 7.7 % this admission, much improved lantus dose was lowered here due to NPO status and poor po intake initially - Continue Lantus at home dose on discharge as is now eating and becoming hyperglycemic again CAD s/p bare metal stent, Chronic diastolic CHF, HTN--> BPs previously very elevated likely secondary to pain--> now much improved -continue Toprol, diltiazem -hydralazine IV prn -not on ASA on home med rec but was on it at last hospitalization 10/2015--> restarted here Depression: - Continue Lexapro Behavioral issues/Cgfklmvt-suy-Wrqeoukr Alzheimer's: -Continue olanzapine, donepezil -supportive care Chronic Pancreatitis: - Continue pancrease DVT prophylaxis: SCDs, received heparin SQ Disposition: to [facility] today Current Hospital Diet Patient's current hospital diet: Diabetes Type 2 Diet Discharge Diet Recommended Diet: Diabetes Type 2 Diet Procedures Procedures Performed: Cystoscopy, Left Ureteral Stent Insertion, Left Retrograde pyelogram Pending Studies Studies pending at discharge: yes List of pending studies: Final Blood culture Physician Orders On Transfer Special Precautions: Fall risk Dressing Changes: None IV Therapy: None Vital Signs: Routine Weigh: Routine Additional Orders: Follow up with PCP within 1-2 days Follow up with Urology Dr. Cruz within 1-2 weeks POLST Discussion: with POLST completion (already has completed) Laboratory Results Hemoglobin A1c Test 07/26/16 08:55 Range/Units Estimated Average Glucose 171 mg/dl Hemoglobin A1c 7.6 H 4.5-5.6 % Medical Emergencies . Who to Call and When: Medical Emergencies: If at any time you feel your situation is an emergency, please call 911 immediately. . Non-Emergent Contact Non-Emergency issues call your: Primary Care Provider, Urologist Call Non-Emergent contact if: you have a fever, your pain is not controlled, you have any medication questions . . "Provider Documentation" section prepared by Cassie Cruz. . Core Measure Problem Core Measures: None
[2016-07-27] MEDS: BOOST GLUCOSE CONTROL PO SCH ×2 (13:30→16:09)
[2016-07-27 15:09] VITALS: BP 147/77; PULSE 55; TEMP 36.9; O2SAT 96
[2016-07-27 15:47] VITALS: BP 129/71; PULSE 51; TEMP 36.9; O2SAT 96
[2016-07-27] MEDS ORDERED: INSULIN GLARGINE SOLOSTAR 100 UNITS/ML 3 ML PEN SC SCH (21:00)
--- NOTE | 2016-08-07 21:44 | Discharge Summary ---
Discharge Summary Date of Service Jul 27, 2016. Discharge Summary Admission Date: Jul 25, 2016 at 02:17 Discharge Date: Jul 27, 2016 Discharge Disposition: intermediate facility Principal Diagnosis: UTI,Sepsis, Ureterolithiasis Problems/Secondary Diagnoses: CAD s/p bare metal stent Chronic diastolic CHF Chronic pancreatitis S/p Whipple procedure for Pancreatic CA Diabetes mellitus II Dyslipidemia Depression Alzheimer's Dementia Acute metabolic encephalopathy BEBA HTN T12 compression fracture Presumed osteoporosis H/O Breast CA H/o PUD Lumbar spinal stenosis Immunizations: Have You Had Influenza Vaccine: No History of Tetanus Vaccine?: Yes History of Pneumococcal: Unknown History of Hepatitis B Vaccine: Unknown Procedures: CT OF THE ABDOMEN AND PELVIS WITHOUT CONTRAST, STONE PROTOCOL CLINICAL HISTORY: Left flank pain and fever. COMPARISON STUDY: CT of the abdomen November 10, 2015 and December 31, 2015. TECHNIQUE: Helical axial images of the abdomen and pelvis were obtained without IV or oral contrast according to renal stone protocol. FINDINGS: Pneumobilia is again noted that is post Whipple. Biliary and pancreatic ductal dilatation is unchanged with pancreatic glandular atrophy. Evaluation of the abdomen is suboptimal on this unenhanced exam. Note is made of a 12 mm calculus at the left ureteropelvic junction. There is moderate left hydronephrosis with moderate left perinephric infiltration. There is also a 9 mm calculus within the left renal pelvis in addition to a 8 mm distal left ureteral calculus. Images the pelvis are degraded by streak artifact from right hip arthroplasty. There is no evidence for a bowel obstruction. No lymphadenopathy is present. A mild T12 compression fracture is new since prior exam. Unenhanced images of the spleen, adrenal glands. There is a cyst within the upper pole of the left kidney. IMPRESSION: 1. 12 mm left ureteropelvic junction calculus with moderate left hydronephrosis and perinephric infiltration. 8 mm distal left ureteral calculus with mild upstream dilatation as well as a 9 mm left renal pelvis calculus. 2. Stable postoperative findings status post Whipple. 3. Mild T12 compression fracture which is new since CT of December 31, 2015. Consultations: Urology Medication Reconciliation New Medications: Ciprofloxacin (Ciprofloxacin HCl) 500 Mg Tab 500 MG PO BID for 14 Days, #28 TAB Aspirin (Aspirin EC Low Dose) 81 Mg Ectab 81 MG PO QAM for 30 Days Continued Medications: Acetaminophen (Tylenol) 325 Mg Tab 650 MG PO Q4 PRN for MILD PAIN/TEMP >100F, TAB MAX APAP 24HRS= 3GM Acetaminophen (Tylenol) 500 Mg Tab 500 MG PO QID, TAB Cholecalciferol (D 5000) 5,000 Unit Cap 5000 UNITS PO QAM Cyanocobalamin (Vitamin B-12) 1,000 Mcg Sub 3000 MCG PO QAM Diltiazem Hcl Ext Rel (Tiazac) 120 Mg Capcr 120 MG PO QAM, CAP Donepezil HCl (Donepezil HCl) 5 Mg Tab 5 MG PO HS, #28 Escitalopram (Lexapro) 10 Mg Tab 10 MG PO QAM, TAB TAKE WITH 5 MG FOR TOTAL OF 15 MG. Escitalopram Oxalate (Lexapro) 5 Mg Tab 5 MG PO QAM, TAB TAKE WITH 10MG FOR TOTAL OF 15 MG. Insulin Glargine (Lantus Solostar) 100 Unit/Ml Inj 12 UNITS SC AMPM, PEN Metoprolol Succ (Toprol Xl) (Toprol-Xl) 50 Mg Tabcr 50 MG PO QAM, #30 TAB Multiple Vitamins W/ Minerals (Therems M) 1 Tab Tab 1 TAB PO QAM Multiple Vitamins W/ Minerals (Preservision Areds 2) 1 Cap Cap 1 CAP PO QAM Nutritional Supplements (Glucerna) 1 Liq Liq 60 ML PO QID Olanzapine (Zyprexa) 2.5 Mg Tab 2.5 MG PO HS, TAB Pancrelipase (Lipase-Protease- (Zenpep 23422 Unit) 1 Cap Cap 66643 UNITS PO TIDM Travoprost (Travatan Z) 0.004 % Tip 1 DROPS OPB HS, #2.5 ML 2 Refills Discontinued Medications: Olanzapine (Olanzapine) 2.5 Mg Tab 1 TAB PO HS, #28 Sulfa/Trimethoprim (Bactrim Ds 800MG/160MG) Tab 1 TAB PO BID, #19 TAB Referrals At Discharge Follow up Referrals: Urologist Referral - Within 1-2 Weeks with Vlad Cruz MD, Urology Discharge Exam Physical Exam General Appearance: WD/WN, no apparent distress Eyes: normal inspection, sclerae normal ENT: hearing grossly normal Neck: trachea midline Respiratory/Chest: lungs clear, normal breath sounds, no respiratory distress, no accessory muscle use Cardiovascular: regular rate, rhythm, no edema, no gallop, no murmur Abdomen: normal bowel sounds, non tender, soft, no organomegaly Extremities: non-tender, normal inspection, no pedal edema, no calf tenderness Neurologic/Psychiatric: alert, + disoriented (oriented to person only) Skin: normal color, warm/dry, no rash Review of Systems: Constitutional: No fever Eyes: No problem reported ENT: No problem reported Respiratory: No problem reported Cardiovascular: No problem reported Abdomen: No problem reported Musculoskeletal: No problem reported Genitourinary - Female: No problem reported Neurologic: No problem reported Psychiatric: No problem reported Endocrine: No problem reported Hematologic / Lymphatic: No problem reported Integumentary: No problem reported Hospital Course 80-year-old female with a past medical history of CAD s/p bare metal stent, chronic diastolic CHF, chronic pancreatitis and pancreatic CA s/p Whipple, diabetes mellitus II, dyslipidemia, Breast CA, depression and dementia, [place] presented to the ER with complaints of altered sensorium and continuing fever. Was found to have a urinary tract infection and CT abdomen and pelvis revealed a left-sided UPJ obstruction with 11 mm calculus with perinephric stranding. Sepsis secondary to Complicated urinary tract infection and ureterolithiasis, Acute metabolic encephalopathy. Resolving no s/p ureteral stent placement on 07/25. Remains afebrile. WBC count back to normal. 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 Glucose now improving on POC with improvement of infection: HgbA1C 10.7% in 12/2015, now 7.7 % this admission, much improved lantus dose was lowered here due to NPO status and poor po intake initially - Continue Lantus at home dose on discharge as is now eating and becoming hyperglycemic again CAD s/p bare metal stent, Chronic diastolic CHF, HTN--> BPs previously very elevated likely secondary to pain--> now much improved -continue Toprol, diltiazem -hydralazine IV prn -not on ASA on home med rec but was on it at last hospitalization 10/2015--> restarted here Depression: - Continue Lexapro Behavioral issues/[id number]-rts-[id number] Alzheimer's: -Continue olanzapine, donepezil -supportive care Chronic Pancreatitis: - Continue pancrease DVT prophylaxis: SCDs, received heparin SQ Disposition: to [facility] today Total Time Spent: Greater than 30 minutes This includes examination of the patient, discharge planning, medication reconciliation, and communication with other providers. Discharge Instructions Please refer to the electronic Patient Visit Report (Discharge Instructions) for additional information. Follow-Up Urology within 2 weeks Additional Copies To Morales Ferguson M.D.
[2016-09-01] MEDS ORDERED: ASPI-232 PO (11:55)
[2016-09-01] MEDS ORDERED: PHEN-939 PO (13:39)
[2016-09-01] MEDS ORDERED: OXYC-57 PO (13:39)
[2016-09-01] MEDS ORDERED: CIPR-255 PO (13:39)
== END 2016-07-27 17:05 | DRG 871 ==
LOC: EDBD 22:57 → C.EDB 22:59 → C.MS2W 07-25 02:17 → ENRESERV 07-25 02:35
PROVIDERS: ADMIT Family Medicine; ATTEND Family Medicine
PROC: 0T778DZ Dilation of Left Ureter with Intraluminal Device, Via Natural or Artificial Opening Endoscopic (ICD-10-PCS; principal; 2016-07-25 14:45)
PROC: BT14ZZZ Fluoroscopy of Kidneys, Ureters and Bladder (ICD-10-PCS; 2016-07-25 14:45)
DX: A41.9 Sepsis, unspecified organism (principal); N13.6 Pyonephrosis; G93.41 Metabolic encephalopathy; N39.0 Urinary tract infection, site not specified; N17.9 Acute kidney failure, unspecified; I50.32 Chronic diastolic (congestive) heart failure; F02.81 Dementia in other diseases classified elsewhere, unspecified severity, with behavioral disturbance; K86.1 Other chronic pancreatitis; I13.0 Hypertensive heart and chronic kidney disease with heart failure and stage 1 through stage 4 chronic kidney disease, or unspecified chronic kidney disease; G30.9 Alzheimer's disease, unspecified; E11.65 Type 2 diabetes mellitus with hyperglycemia; I25.2 Old myocardial infarction; I25.10 Atherosclerotic heart disease of native coronary artery without angina pectoris; E78.00 Pure hypercholesterolemia, unspecified; E78.5 Hyperlipidemia, unspecified; F32.9 Major depressive disorder, single episode, unspecified; Z79.899 Other long term (current) drug therapy; Z79.4 Long term (current) use of insulin; Z87.01 Personal history of pneumonia (recurrent); Z85.07 Personal history of malignant neoplasm of pancreas; Z85.3 Personal history of malignant neoplasm of breast; Z95.5 Presence of coronary angioplasty implant and graft; Z91.81 History of falling

== ENCOUNTER → 2016-08-16 | Outpatient (CLI) | payer BC, OTHER ==
[~2016-08-16] MED LIST changes: -ASCO10003 PO; -CHOL1TAB4 PO; -CIPR1TAB10 PO; +CPR500 PO; -DFL100 PO; -DLCSR120 PO; -HYDR-5688 PO; -INSUINJ14 SC; -METR-163 PO; -MULT-513 PO; -SODI5SOL4 OPB; -SULF800T23 PO; -TPRSR50 PO; -TRAM-10 PO; -ZYP25 PO
--- NOTE | 2016-08-16 13:41 | DIAGNOSTIC IMAGING REPORT ---
[facility] CLINICAL HISTORY: Nephrolithiasis. COMPARISON STUDY: CT of the abdomen and pelvis and retrograde exam of 2016. FINDINGS: A left ureteral stent appears appropriately positioned. 2 left renal pelvis calculi measure up to 1.4 cm. An 8 mm distal left ureteral calculus is unchanged in position since exam of July 25, 2016. There are no right renal calculi. There is a right hip arthroplasty. Bowel gas pattern is normal. A moderate amount of stool within the colon and rectum is noted. IMPRESSION: Appropriately positioned left ureteral stent. No change in position of an 8 mm distal left ureteral calculus. Two left renal pelvis calculi measuring up to 1.4 cm. Electronically signed by: Ky Aleman M.D. 08/16/2016 1:40 PM Dictated Date/Time: 08/16/2016 1:35 PM
== END | disposition home or self-care (01) ==
LOC: C.RAD 12:02
PROVIDERS: ATTEND Nurse Practitioner Adult Health
DX: N20.0 Calculus of kidney (principal)

== ENCOUNTER → 2016-08-18 | Outpatient (CLI) | payer BC ==
[~2016-08-18] MED LIST changes: +ASPI-232 PO; +CIPR-255 PO; +OXYC-57 PO; +PHEN-939 PO
== END | disposition home or self-care (01) ==
LOC: C.LABVPSUA 16:53
PROVIDERS: ATTEND Nurse Practitioner Adult Health
DX: N20.1 Calculus of ureter (principal)

== ENCOUNTER → 2016-08-19 | Outpatient (CLI) | payer BC ==
[2016-08-19 09:46] LABS: BASO % 0.5 %; BASO ABS # 0.05 K/uL (0-0.2); COMPLETE YES; HEMATOCRIT 36.2 % (37-47); IG% 0.5 %; LYMPH % 22.8 %; LYMPH ABS # 2.09 K/uL (1.2-3.4); MEAN CELL VOLUME 90.3 fL (80-100); MEAN CORPUSCULAR HEMOGLOBIN 29.2 pg (25-34); MEAN CORPUSCULAR HGB CONC 32.3 g/dl (32-36); MEAN PLATELET VOLUME 9.1 fL (7.4-10.4); MONO % 14.3 %; NEUT % 56.9 %; PLATELET COUNT 278 K/uL (130-400); RED BLOOD COUNT 4.01 M/uL (4.2-5.4); WHITE BLOOD COUNT 9.15 K/uL (4.8-10.8)
[2016-08-19 10:00] LABS: BLOOD UREA NITROGEN 21 mg/dl (7-18); BUN/CREATININE RATIO 23.6 (10-20); CALCIUM 9.2 mg/dl (8.5-10.1); CARBON DIOXIDE 24 mmol/L (21-32); CHLORIDE 108 mmol/L (98-107); CREATININE 0.89 mg/dl (0.60-1.20); GLUCOSE 117 mg/dl (70-99); POTASSIUM 4.4 mmol/L (3.5-5.1); SODIUM 139 mmol/L (136-145)
== END | disposition home or self-care (01) ==
LOC: C.LABVPSUA 09:03
PROVIDERS: ATTEND Internal Medicine Critical Care Medicine
DX: I25.10 Atherosclerotic heart disease of native coronary artery without angina pectoris (principal)

== ENCOUNTER → 2016-09-01 | Day surgery (SDC) | payer BC, OTHER ==
[2016-08-30 16:25] VITALS: BMI 26.0
--- NOTE | 2016-08-30 16:26 | PAT Medication Instructions ---
Service Date Aug 30, 2016. Current Home Medication List Acetaminophen (Tylenol), 650 MG PO Q4 PRN for MILD PAIN/TEMP >100F Acetaminophen (Tylenol), 500 MG PO QID Cholecalciferol (D 5000), 5,000 UNITS PO QAM Cyanocobalamin (Vitamin B-12), 3,000 MCG PO QAM Diltiazem Hcl Ext Rel (Tiazac), 120 MG PO QAM Donepezil HCl (Donepezil HCl), 5 MG PO HS Escitalopram (Lexapro), 10 MG PO QAM Escitalopram Oxalate (Lexapro), 5 MG PO QAM Insulin Glargine (Lantus Solostar), 12 UNITS SC AMPM Metoprolol Succ (Toprol Xl) (Toprol-Xl), 50 MG PO QAM Multiple Vitamins W/ Minerals (Therems M), 1 TAB PO QAM Multiple Vitamins W/ Minerals (Preservision Areds 2), 1 CAP PO QAM Olanzapine (Zyprexa), 2.5 MG PO HS Pancrelipase (Lipase-Protease- (Zenpep 33068 Unit), 20,000 UNITS PO TIDM Travoprost (Travatan Z), 1 DROPS OPB HS Medication Instructions For Your Scheduled Surgery - Hold the following medications the morning of surgery: Multiple Vitamins W/ Minerals (Therems M), 1 TAB PO QAM Multiple Vitamins W/ Minerals (Preservision Areds 2), 1 CAP PO QAM Cholecalciferol (D 5000), 5,000 UNITS PO QAM Cyanocobalamin (Vitamin B-12), 3,000 MCG PO QAM Pancrelipase (Lipase-Protease- (Zenpep 28602 Unit), 20,000 UNITS PO TIDM - Take the following medications the morning of surgery with a sip of water OTHERWISE NOTHING TO EAT OR DRINK AFTER MIDNIGHT: Acetaminophen (Tylenol), 650 MG PO Q4 PRN for MILD PAIN/TEMP >100F (may take if needed up to 4 hours prior to surgery) Acetaminophen (Tylenol), 500 MG PO QID (may take if needed up to 4 hours prior to surgery) Escitalopram (Lexapro), 10 MG PO QAM Escitalopram Oxalate (Lexapro), 5 MG PO QAM Diltiazem Hcl Ext Rel (Tiazac), 120 MG PO QAM Metoprolol Succ (Toprol Xl) (Toprol-Xl), 50 MG PO QAM - For Insulin Dependent Diabetic patients: Test blood sugar A.M. of surgery. - If Blood Sugar GREATER THAN 150, take HALF of your regular dose of: Insulin Glargine (Lantus Solostar) - If Blood Sugar is LESS THAN 150, DO NOT TAKE ANY: Insulin Glargine ( Lantus Solostar) - Take the following medications as scheduled the night before surgery: Acetaminophen (Tylenol), 650 MG PO Q4 PRN for MILD PAIN/TEMP >100F Acetaminophen (Tylenol), 500 MG PO QID Olanzapine (Zyprexa), 2.5 MG PO HS Travoprost (Travatan Z), 1 DROPS OPB HS Pancrelipase (Lipase-Protease- (Zenpep 93699 Unit), 20,000 UNITS PO TIDM Insulin Glargine (Lantus Solostar), 12 UNITS SC AMPM Donepezil HCl (Donepezil HCl), 5 MG PO HS If you have any questions please call us at [phone] or [phone] or [phone]
[~2016-09-01] VITALS: Ht 147.3 cm; Wt 56.8 kg
[~2016-09-01] MED LIST changes: -ASPEC81 PO; +ATROPINE SULFATE 0.1 MG/ML 5ML SYR IV PRN; +BELLADONNA/OPIUM SUPP 60 MG SUPP PR ONE; +CIPROFLOXACIN / D5W 400 MG IV SCH; +CONRAY 30% 150ML BOTTLE ONE; -CPR500 PO; +EpHEDrine SULFATE INJ 50 MG/ML AMP IV PRN; +FENTANYL CITRATE INJ 50 MCG/1 ML 2 ML VIAL ONE; +LACTATED RINGER'S 1000ML 1,000 ML IV SCH; +LIDOCAINE HCL 2% 2 ML VIAL (20MG/ML) ONE; -NUTR-468 PO; +ONDANSETRON INJ 2 MG/ML 2 ML VIAL IV PRN; +OXYCODONE/ACETAMINOPHEN 5-325 TAB PO PRN; +PHENAZOPYRIDINE HCL 100 MG TAB PO PRN; +PROPOFOL IV EMULSION 10 MG/ML 20 ML VIAL IV ONE
--- NOTE | 2016-09-01 11:19 | History & Physical Bridge Note ---
H&P Re-Evaluation Bridge Note: I have examined the patient, reviewed the History & Physical and in the interval since the performance of the History & Physical I have noted the following changes of clinical significance: No changes noted
[2016-09-01 11:24] VITALS: BP 113/65; PULSE 60; TEMP 37.3; O2SAT 96; Ht 147.3 cm; Wt 56.8 kg
--- NOTE | 2016-09-01 13:40 | Discharge Instructions ---
Discharge Instructions Date of Service Sep 01, 2016. Admission Reason for Admission: STONE Discharge Discharge Diagnosis / Problem: L ureteral stone s/p uscope, laser litho Discharge Goals Goal(s): Improve function, Improve disease control, Therapeutic intervention Activity Recommendations Activity Limitations: as noted below Lifting Limitations: no more than 25 pounds, gradually increase as tolerated Exercise/Sports Limitations: rest today, gradually increase as tolerated May Resume Sexual Activity: when tolerated Shower/Bathe: no limitations Driving or Machine Use: resume 3 days after discharge . Instructions / Follow-Up Instructions / Follow-Up In office as scheduled with [facility] Xray before appointment Discharge Diet Recommended Diet: Regular Diet (good fluid intake) Procedures Procedures Performed: Cystoscopy, left ureteral stent exchange, left semirigid and flexible ureteroscopy with laser lithotripsy and basket stone extraction Pending Studies Studies pending at discharge: yes List of pending studies: Stone analysis Laboratory Results Hemoglobin A1c Test 07/26/16 08:55 Range/Units Estimated Average Glucose 171 mg/dl Hemoglobin A1c 7.6 H 4.5-5.6 % Medical Emergencies . Who to Call and When: Medical Emergencies: If at any time you feel your situation is an emergency, please call 911 immediately. . Non-Emergent Contact Non-Emergency issues call your: Urologist Call Non-Emergent contact if: you have a fever, temperature is above 101, your pain is not controlled, your pain is worsening, your pain is unusual for you, your pain is concerning you, you have any medication questions . . "Provider Documentation" section prepared by Vlad Cruz. . VTE Core Measure Inpt VTE Proph given/why not?: SCD's [place] Drug Monitoring Program Search Results: patient reviewed within database, see additional documentation (last Rx for narcotics Oct 2015 - provided for postop analgesia)
--- NOTE | 2016-09-01 15:10 | [facility] Post Operative Brief Note ---
Immediate Operative Summary Operative Date Sep 01, 2016. Pre-Operative Diagnosis Left ureteral and renal stones Post-Operative Diagnosis Same Procedure(s) Performed Cystoscopy, left ureteral stent exchange, left semirigid and flexible ureteroscopy with laser lithotripsy and basket stone extraction Surgeon Dr Dre Cruz Proof Tester Surgeon(s) none Estimated Blood Loss 10 cc Findings Ureteral stone fragmented and extracted, left renal stone dusted and larger pieces extracted, good stent position at end of case. Specimens #1 Routine culture and anerobic culture of bladder urine verified by surgeon sent to lab at 1400 Lab called on talked with surgeon and bladder urine sent for routine culture only. A: Left ureteral and renal stone for stone analysis Drains 6 fr multilength stent on left Anesthesia [facility] Complication(s) None Disposition Recovery Room / PACU
--- NOTE | 2016-09-01 15:12 | DIAGNOSTIC IMAGING REPORT ---
FLUOROSCOPIC IMAGES FROM RETROGRADE EXAM CLINICAL HISTORY: Lithotripsy. Stent exchange. COMPARISON STUDY: [facility] August 16, [address] of the abdomen and pelvis July 25, 2016. Fluoroscopy time: 1 minute and 20 seconds. FINDINGS: 4 fluoroscopic images from a left retrograde exam were obtained. These images demonstrate exchange of a left ureteral stent. The proximal aspect of the stent projects over the left renal pelvis. A suspected distal left ureteral calculus is unchanged in position. There are left renal pelvis calculi. IMPRESSION: 1. Fluoroscopic images demonstrating left ureteral stent exchange. 2. Redemonstration of distal left ureteral and left renal pelvis calculi. Electronically signed by: Ky Aleman M.D. 09/01/2016 3:10 PM Dictated Date/Time: 09/01/2016 3:08 PM
--- NOTE | 2016-09-01 15:17 | [facility] Operative Report ---
Operative Report Operative Date Sep 01, 2016. Pre-Operative Diagnosis Left ureteral and renal stones Post-Operative Diagnosis Same Procedure(s) Performed Cystoscopy, left ureteral stent exchange, left semirigid and flexible ureteroscopy with laser lithotripsy and basket stone extraction Surgeon Dr Dre Cruz Emblem Fuser Tender Surgeon(s) none Estimated Blood Loss 10 cc Findings Ureteral stone fragmented and extracted, left renal stone dusted and larger pieces extracted, good stent position at end of case. Specimens #1 Routine culture and anerobic culture of bladder urine verified by surgeon sent to lab at 1400 Lab called on talked with surgeon and bladder urine sent for routine culture only. A: Left ureteral and renal stone for stone analysis Drains 6 fr multilength stent on left Anesthesia [facility] Complication(s) None Disposition Recovery Room / PACU Indications Left ureteral and renal stones Description of Procedure Patient is an 80-year-old demented female who had seen acutely last month due to urosepsis and left obstructing stones. She underwent an acute ureteral stent placement and appropriate therapy for her infection. After being seen in the office patient is here today for endoscopic management of her ureteral and renal stones. Intravenous ciprofloxacin was provided for antibiotic coverage, no uropathogens noted on preoperative culture. Patient is demented at baseline. SCDs used for DVT prophylaxis. After induction of general anesthesia with LMA full timeout procedure was followed. 22 Libyan rigid cystoscope was introduced into the bladder which was noted to have cloudy urine present. This was sent for culture. Left-sided ureteral stent was noted to be on encrusted and was grasped and brought to the level of the meatus using an alligator forceps. This was cannulated with a sensor tip wire which was advanced up the level of the left renal pelvis on fluoroscopy. This was kept until the end of the case as a safety wire. Semirigid ureteroscope was advanced into the distal ureter without the need for dilation. Stone as noted on [facility] imaging and fluoroscopy was encountered, fragmented using a 200 laser fiber and the pieces were extracted using an open-ended basket. After this was complete the semirigid ureteroscope was advanced into the proximal ureter without evidence of residual stones or ureteral injury. An Amplatz Super Stiff wire was advanced via the ureteroscope which was backloaded off the wire. A 12/ 14 20 cm ureteral access sheath was advanced into the distal ureter. A flexible fiberoptic ureteroscope was advanced up to the level of the kidney via the access sheath and the 2 larger renal stones were encountered. These were fragmented using the 200 fiber at dusting settings with the majority of the stone being tested and flushed through the access sheath. Larger fragments were grasped using the open-ended basket and brought out of the patient for analysis. After this was complete complete pyeloscopy was repeated. This demonstrated no large renal fragments which required further therapy. Complete exit ureteroscopy was performed including removal of the access sheath demonstrating no ureteral injury. A larger stone fragment was encountered which was then fragmented and removed prior to completion of exit ureteroscopy. Was ureter was noted to be intact with no residual stones the cystoscope was backloaded over the safety wire and a 6 Libyan multilength left-sided ureteral stent was advanced with redundant coil within the renal pelvis and within the bladder under direct visualization. Bladder was drained cystoscope was removed anesthesia was reversed patient's transient recovery room in stable condition patient will be discharged back to her facility with a prescription for ciprofloxacin, Pyridium, and Percocet. Outpatient appointment with [facility] is confirmed. Facility to contact us for any fevers, chills, nausea, vomiting or other adverse events in the postoperative period I attest to the content of the Intraoperative Record and any orders documented therein. Any exceptions are noted below.
[2016-09-01 15:55] VITALS: BP 142/51; PULSE 57; TEMP 36.4; O2SAT 97
--- NOTE | 2016-09-01 16:09 | Anesthesiology Progress Note ---
Anesthesia Post Op Note Date & Time Sep 01, 2016 at 16:09 Vital Signs Pain Intensity: 0 Vital Signs Past 12 Hours Date Time Temp Pulse Resp B/P (MAP) Pulse Ox O2 Delivery O2 Flow Rate FiO2 09/01/16 15:55 36.4 57 16 142/51 97 Room Air 0 09/01/16 15:45 36.4 56 14 144/71 98 Room Air 09/01/16 15:36 138/64 09/01/16 15:36 138/64 09/01/16 15:33 57 15 97 09/01/16 15:33 57 15 97 09/01/16 15:33 58 15 09/01/16 15:33 58 15 09/01/16 15:31 138/68 09/01/16 15:31 138/68 09/01/16 15:28 61 23 09/01/16 15:28 67 23 97 09/01/16 15:28 67 23 97 09/01/16 15:28 61 23 09/01/16 15:27 142/69 09/01/16 15:27 142/69 09/01/16 15:23 63 17 09/01/16 15:23 64 17 97 09/01/16 15:23 64 17 97 09/01/16 15:23 63 17 09/01/16 15:22 145/72 09/01/16 15:22 145/72 09/01/16 15:21 151/71 09/01/16 15:21 151/71 09/01/16 15:18 62 31 09/01/16 15:18 61 31 100 09/01/16 15:18 61 31 100 09/01/16 15:18 62 31 09/01/16 15:17 147/73 09/01/16 15:17 147/73 09/01/16 15:13 60 21 100 09/01/16 15:13 60 21 09/01/16 15:13 60 21 09/01/16 15:13 60 21 100 09/01/16 15:12 155/69 09/01/16 15:12 155/69 09/01/16 15:09 156/65 09/01/16 15:09 156/65 09/01/16 15:08 36.4 60 19 156/65 100 Mask 10 09/01/16 11:24 37.3 60 20 113/65 (81) 96 Room Air Notes Mental Status: alert / awake / arousable, participated in evaluation Pt Amnestic to Procedure: Yes Nausea / Vomiting: adequately controlled Pain: adequately controlled Airway Patency, RR, SpO2: stable & adequate BP & HR: stable & adequate Hydration State: stable & adequate Anesthetic Complications: no major complications apparent
[2016-09-01 16:25] VITALS: BP 134/56; PULSE 64; TEMP 36.4; O2SAT 98
== END | disposition home or self-care (01) ==
LOC: C.ACU 10:42
PROVIDERS: ATTEND Urology
DX: N20.1 Calculus of ureter (principal); N20.0 Calculus of kidney; M19.90 Unspecified osteoarthritis, unspecified site; I25.10 Atherosclerotic heart disease of native coronary artery without angina pectoris; E11.9 Type 2 diabetes mellitus without complications; E78.5 Hyperlipidemia, unspecified; H40.9 Unspecified glaucoma; I10 Essential (primary) hypertension; E04.2 Nontoxic multinodular goiter; M81.0 Age-related osteoporosis without current pathological fracture; Z85.07 Personal history of malignant neoplasm of pancreas; Z79.84 Long term (current) use of oral hypoglycemic drugs; Z79.899 Other long term (current) drug therapy; Z85.3 Personal history of malignant neoplasm of breast; Z79.82 Long term (current) use of aspirin; Z79.4 Long term (current) use of insulin

== ENCOUNTER → 2016-09-12 | Outpatient (CLI) | payer BC ==
[~2016-09-12] MED LIST changes: -ATROPINE SULFATE 0.1 MG/ML 5ML SYR IV PRN; -BELLADONNA/OPIUM SUPP 60 MG SUPP PR ONE; -CIPROFLOXACIN / D5W 400 MG IV SCH; -CONRAY 30% 150ML BOTTLE ONE; -EpHEDrine SULFATE INJ 50 MG/ML AMP IV PRN; -FENTANYL CITRATE INJ 50 MCG/1 ML 2 ML VIAL ONE; -LACTATED RINGER'S 1000ML 1,000 ML IV SCH; -LIDOCAINE HCL 2% 2 ML VIAL (20MG/ML) ONE; -ONDANSETRON INJ 2 MG/ML 2 ML VIAL IV PRN; -OXYCODONE/ACETAMINOPHEN 5-325 TAB PO PRN; -PANC1CAP17 PO; -PHEN-939 PO; -PHENAZOPYRIDINE HCL 100 MG TAB PO PRN; -PROPOFOL IV EMULSION 10 MG/ML 20 ML VIAL IV ONE
--- NOTE | 2016-09-12 11:19 | DIAGNOSTIC IMAGING REPORT ---
[facility] CLINICAL HISTORY: LEFT URETERAL STONE nephrocalcinosis COMPARISON STUDY: 08/16/2016 FINDINGS: Interval fragmentation of the 1.4 cm left renal pelvic calcification. The calcifications appear to have traveled distally and are now within the mid left ureter at approximately level of L5. The fragmented linear grouping of calcifications measuring 3 cm in overall length. The distal left ureteral calculus has either passed or was fragmented and has subsequently passed. There are no calcifications overlying the kidneys are symmetrically area in left ureteral stent is in good position. IMPRESSION: 1. Interval fragmentation of the previously described left renal pelvic calcification. 2. The fragmented calcification fragments are present at approximately the level of L5 adjacent to the left ureteral stent. 3. The distal left ureteral calculus is no longer present. The above report was generated using voice recognition software. It may contain grammatical, syntax or spelling errors. Electronically signed by: Kevin Edwards M.D. 09/12/2016 11:17 AM Dictated Date/Time: 09/12/2016 11:14 AM
== END | disposition home or self-care (01) ==
LOC: C.RAD 10:48
PROVIDERS: ATTEND Nurse Practitioner Adult Health
DX: N20.1 Calculus of ureter (principal)

== ENCOUNTER → 2016-09-22 | Outpatient (CLI) | payer BC ==
[2016-09-22 09:27] LABS: BLOOD UREA NITROGEN 18 mg/dl (7-18); BUN/CREATININE RATIO 21.9 (10-20); CREATININE 0.83 mg/dl (0.60-1.20)
== END ==
LOC: C.LABVPSUA 08:54
PROVIDERS: ATTEND Internal Medicine Critical Care Medicine
DX: I50.32 Chronic diastolic (congestive) heart failure (principal)

== ENCOUNTER → 2016-09-30 | Outpatient (CLI) | payer BC ==
[~2016-09-30] MED LIST changes: +OPTIRAY 300 IV PRN
--- NOTE | 2016-09-30 15:53 | DIAGNOSTIC IMAGING REPORT ---
IVP W/OR W/O TOMOGRAMS CLINICAL HISTORY: Nephrolithiasis. Ureteral calculi. COMPARISON STUDY: [facility] 08/16/2016. FINDINGS: Renal shadows are partially obscured by overlying bowel and the fine grade operator images. No definite renal, ureteral, or bladder catheter identified. Round calcifications in the deep pelvis likely represent phleboliths. Right hip hemiarthroplasty. The left ureteral stent has been removed. Following the intravenous administration of contrast there is prompt and symmetric perfusion of the kidneys. The kidneys are normal in size. No hydronephrosis. No suspicious filling defects within the bilateral renal collecting systems. The ureters are suboptimally evaluated due to overlying bowel gas but appear to be normal in course and caliber with no filling defects. The bladder is normal in size and shape. Small post residual. IMPRESSION: 1. No renal, ureteral, or bladder stones identified. 2. No hydronephrosis. 3. No suspicious filling defects within the urinary system. 4. Small postvoid residual. Electronically signed by: Wayne Rowan M.D. 09/30/2016 4:14 PM Dictated Date/Time: 09/30/2016 3:50 PM
== END | disposition home or self-care (01) ==
LOC: C.RAD 14:14
PROVIDERS: ATTEND Urology
DX: N20.0 Calculus of kidney (principal)